=== PATIENT | female | born 1980 | race Caucasian/White ===

== ENCOUNTER 2016-12-04 21:55 | Emergency (ER) | payer OTHER ==
[2016-12-04] MEDS ORDERED: Ondansetron INJ* 2 MG/ML VIAL IV ONE (22:53)
[2016-12-04] MEDS ORDERED: NS 0.9% 1000 ML* 1,000 ML IV ONE (22:53)
[2016-12-04] MEDS ORDERED: Ofloxacin 0.3% OTIC.SOL* 5 ML BTL RIGHT EAR ONE (23:39)
--- NOTE | 2016-12-05 01:00 | ED ---
Throat Pain/Nasal Congestion - HPI Summary HPI Summary: 36F presents with right ear pain for 4 days. She has history of positional vertigo. She has had recent ear infection. She was taking aumgentin for a sinus /ear infection and last dose was 5 days ago. She admits to vertigo with the ear pain. She has ringing in her ears. She states she feels just miserable. She admits to sinus drainage. She has been taking sudafed as suggested by her primary. She states that is has been making the vertigo worst. - History of Current Complaint Chief Complaint: EDEarPain Time Seen by Provider: 12/04/16 22:15 - Allergies/Home Medications Allergies/Adverse Reactions: Allergies Allergy/AdvReac Type Severity Reaction Status Date / Time No Known Allergies Allergy Verified 08/06/15 07:09 PMH/Surg Hx/FS Hx/Imm Hx Endocrine/Hematology History: Denies: Hx Blood Disorders Cardiovascular History: Denies: Hx Valvular Heart Disease Respiratory History: Denies: Hx Asthma Musculoskeletal History: Denies: Hx Osteoporosis Sensory History: Reports: Hx Contacts or Glasses Opthamlomology History: Reports: Hx Contacts or Glasses Neurological History: Denies: Hx Seizures Psychiatric History: Denies: Hx Anxiety, Hx Eating Disorder, Hx Depression - Surgical History Surgery Procedure, Year, and Place: tonsils. double hernia repair as a child Infectious Disease History: No Infectious Disease History: Denies: Traveled Outside the [place] in Last 30 Days - Family History Known Family History: Positive: None, Hypertension - Social History Alcohol Use: Rare Hx Substance Use: No Substance Use Type: Reports: None Hx Tobacco Use: No Smoking Status (MU): Never Smoked Tobacco Review of Systems Negative: Fever Positive: Ear Ache, Nasal Discharge Negative: Chest Pain Negative: Shortness Of Breath, Cough Neurological: Other - vertigo Negative: Weakness All Other Systems Reviewed And Are Negative: Yes Physical Exam Triage Information Reviewed: Yes Vital Signs On Initial Exam: Initial Vitals Temp Pulse Resp BP Pulse Ox 98.3 F 96 20 145/82 99 12/04/16 21:57 12/04/16 21:57 12/04/16 21:57 12/04/16 21:57 12/04/16 21:57 Vital Signs Reviewed: Yes Appearance: Positive: Ill-Appearing Skin: Positive: Warm, Dry Head/Face: Positive: Normal Head/Face Inspection Eyes: Positive: Normal, EOMI, HEDY, Conjunctiva Clear ENT: Positive: Pharynx normal, Nasal drainage, TMs normal, Other - canal erythematous of right ear, fluid behind TMs Neck: Positive: Supple, Nontender, No Lymphadenopathy Respiratory/Lung Sounds: Positive: Clear to Auscultation, Breath Sounds Present Cardiovascular: Positive: Normal, RRR Neurological: Positive: Alert, Oriented to Person Place, Time, CN Intact II- III. Negative: Moris-[place] Test - [place] Coma Scale Best Eye Response: 4 - Spontaneous Best Motor Response: 6 - Obeys Commands Best Verbal Response: 5 - Oriented Coma Scale Total: 15 Diagnostics - Vital Signs Vital Signs Temp Pulse Resp BP Pulse Ox 12/04/16 22:19 98.3 F 92 20 142/82 98 12/04/16 21:57 98.3 F 96 20 145/82 99 - Laboratory Lab Statement: Any lab studies that have been ordered have been reviewed, and results considered in the medical decision making process. Re-Evaluation - Re-Evaluation First Eval Re-Evaluation Time: 01:01 Change: Improved EENT Course/Dx - Course Course Of Treatment: 36F presents with ear pain in right ear for 4 days. also admits to vertigo. has been taking sudafed which has not helped. admits to tinnitus. takes meczline and zofran normally for vertigo but not helping. on exam neg moris-hallmarks. TM fluid behind but nonbuldging. canal is erythematous so will treat for otits externa. gave liter of fluids and zofran and patient felt better. discussed that may need to follow up with ENT due to recurrent issues with vertigo and tinnitus. patient understands and agrees with plan - Differential Diagnoses Differential Diagnoses: Otitis Externa, Otitis Media, Sinusitis, Other - vertigo - Diagnoses Provider Diagnoses: Otitis externa, Vertigo Discharge - Discharge Plan Condition: Good Disposition: HOME Prescriptions: Fluticasone NASAL SPRAY 50MCG* [Flonase NASAL SPRAY 50MCG*] 2 spray BOTH NARES DAILY #1 btl Patient Education Materials: Otitis Externa (ED) Referrals: Bhaskar Teran MD [Medical Doctor] - Judi Nevarez MD [Primary Care Provider] - Additional Instructions: Take 10 drops in ear once daily for 7 days Take Flonase one spray each nostril twice a day Continue to take sudafed Follow up with ENT Return to ED if develop any new or worsening symptoms
[2016-12-05 01:11] VITALS: BP 136/76
== END 2016-12-05 01:10 | disposition home or self-care (01) ==
LOC: ED 21:55
DX: H60.90 Unspecified otitis externa, unspecified ear (principal); H92.01 Otalgia, right ear; R42 Dizziness and giddiness
CPT/HCPCS: 96374; 99282; A9270-GY; J2405

== ENCOUNTER 2016-12-20 16:52 | Emergency (ER) | payer OTHER ==
[2016-12-20] MEDS ORDERED: methylPREDNISolone 125 MG* 2 ML VIAL IV ONE (17:32)
[2016-12-20] MEDS ORDERED: Famotidine IV* 10 MG/ML 2 ML (20 mg) IV SLOW PU ONE (17:32)
[2016-12-20 19:08] VITALS: BP 116/68
--- NOTE | 2016-12-21 18:01 | ED ---
Spike Florez Auryana, scribed for Chuy Braun MD on 12/20/16 at 1801 . Allergic Reaction/Systemic - HPI Summary HPI Summary: 36 year old female BIBA s/p allergic reaction to ABX. Patient reports that she just started taking the medication today for fluids behind her ears x8 weeks. Patient reports that on the way to the doctors today she had a near syncopal episode with bilateral hand swelling and tingling. She also had erythema/rash on the upper ext./face, tongue swelling and trouble swallowing en route to ED. EPI ADMISSION NURSE - one at PCP and one en route. Dr. Nevarez is her PCP. - History of Current Complaint Chief Complaint: EDAllergicReaction Time Seen by Provider: 12/20/16 17:10 Hx Obtained From: Patient Onset/Duration: Sudden Onset, Started hours ago - ADMISSION NURSE, Still Present Timing: Intermittent Severity Initially: Moderate Severity Currently: Moderate Pain Intensity: 0 Pain Scale Used: 0-10 Numeric Location: Diffuse Character: Swelling, Hives Associated Signs And Symptoms: Positive: Rash, Other: - tongue swelling with trouble swallowing, near syncope, and tingling in the hands with edema - Related Hx Possible Reaction To: Medications - ABX - Allergies/Home Medications Allergies/Adverse Reactions: Allergies Allergy/AdvReac Type Severity Reaction Status Date / Time No Known Allergies Allergy Verified 08/06/15 07:09 PMH/Surg Hx/FS Hx/Imm Hx Endocrine/Hematology History: Denies: Hx Blood Disorders Cardiovascular History: Denies: Hx Valvular Heart Disease Respiratory History: Denies: Hx Asthma Musculoskeletal History: Denies: Hx Osteoporosis Sensory History: Reports: Hx Contacts or Glasses Opthamlomology History: Reports: Hx Contacts or Glasses Neurological History: Denies: Hx Seizures Psychiatric History: Denies: Hx Anxiety, Hx Eating Disorder, Hx Depression - Surgical History Surgery Procedure, Year, and Place: tonsils. double hernia repair as a child Infectious Disease History: Denies: Traveled Outside the [place] in Last 30 Days - Family History Known Family History: Positive: Hypertension - Social History Lives: With Family Alcohol Use: Rare Hx Substance Use: No Substance Use Type: Reports: None Hx Tobacco Use: No Smoking Status (MU): Never Smoked Tobacco Review of Systems Constitutional: Negative Negative: Fever Eyes: Negative Positive: Other - TONGUE SWELLING WITH TROUBLE SWALLOWING Cardiovascular: Negative Respiratory: Negative Gastrointestinal: Negative Genitourinary: Negative Positive: no symptoms reported Positive: Edema - HANDS Positive: Rash - UPPER EXT AND FACE Positive: Paresthesia - HANDS , Syncope - NEAR Psychological: Normal All Other Systems Reviewed And Are Negative: Yes Physical Exam Triage Information Reviewed: Yes Vital Signs On Initial Exam: Initial Vitals Temp Pulse Resp BP 98 F 88 18 129/70 12/20/16 17:01 12/20/16 17:01 12/20/16 17:01 12/20/16 17:01 Vital Signs Reviewed: Yes Appearance: Positive: Well-Appearing, No Pain Distress, Well-Nourished Skin: Positive: Warm, Skin Color Reflects Adequate Perfusion, Dry Head/Face: Positive: Normal Head/Face Inspection Eyes: Positive: Normal ENT: Positive: Hearing grossly normal, Pharynx normal, Other - MILD FLUID BEHIND THE EARS Dental: Positive: Other - SLIGHT TONGUE SWELLING Neck: Positive: Supple, Nontender Respiratory/Lung Sounds: Positive: Clear to Auscultation, Breath Sounds Present Cardiovascular: Positive: RRR, Pulses are Symmetrical in both Upper and Lower Extremities Abdomen Description: Positive: Nontender, Soft Bowel Sounds: Positive: Present Musculoskeletal: Positive: Normal, Strength/ROM Intact Neurological: Positive: Normal, Sensory/Motor Intact Psychiatric: Positive: Normal, Affect/Mood Appropriate Diagnostics - Vital Signs Vital Signs Temp Pulse Resp BP Pulse Ox 12/20/16 17:12 85 18 98 12/20/16 17:01 98 F 88 18 129/70 - Laboratory Lab Statement: Any lab studies that have been ordered have been reviewed, and results considered in the medical decision making process. Allergic Reaction Course/Dx - Course Course Of Treatment: Ms. Lopez came in after a severe allergic reaction just subsequent to taking cefuroxime which she has had many times in the past. She got better with prehospital meds and we continued tretment and observed her. - Diagnoses Provider Diagnoses: Allergic reaction Discharge - Discharge Plan Condition: Stable Disposition: HOME Patient Education Materials: Antibiotic Medication Allergy (ED) Referrals: Judi Nevarez MD [Primary Care Provider] - 3 Days Additional Instructions: STOP TAKING CEFEROXINE The documentation as recorded by the Spike phillip Auryana accurately reflects the service I personally performed and the decisions made by , Chuy Braun MD.
== END 2016-12-20 19:09 | disposition home or self-care (01) ==
LOC: ED 16:52
DX: T78.40XA Allergy, unspecified, initial encounter (principal)
CPT/HCPCS: 96374; 96375; 99283; J2930

== ENCOUNTER 2017-06-24 13:18 | Emergency (ER) | payer OTHER ==
[2017-06-24] MEDS ORDERED: Famotidine IV* 10 MG/ML 2 ML (20 mg) IV ONE (13:34)
--- NOTE | 2017-06-24 15:33 | ED ---
Ross Florez Abhishek, scribed for Nam Alonzo MD on 06/24/17 at 1530 . Allergic Reaction/Systemic - HPI Summary HPI Summary: This patient is a 36 year old F BIBA with a chief complaint of allergic reaction since 1130 on 06/24/17. The patient rates the pain 0/10 in severity. Symptoms aggravated by nothing. Symptoms alleviated by Epinephrine and Benadryl. Pt does not know the source of the allergies. Other allergy includes cefuroxime. Patient reports throat tightening and pruritus during onset of allergic reaction. Pt states her symptoms are currently relieved except the throat tightening. Pt denies SOB. EMS reports states that the pt was not under respiratory distress. - History of Current Complaint Chief Complaint: EDAllergicReaction Time Seen by Provider: 06/24/17 13:34 Hx Obtained From: Patient, EMS Onset/Duration: Sudden Onset, Resolved Timing: Constant Severity Currently: None Pain Intensity: 0 Pain Scale Used: 0-10 Numeric Character: Pruritus Alleviating Factor(s): Epinephrine, Other - benadryl Associated Signs And Symptoms: Positive: Throat Tightening - Related Hx Possible Reaction To: Unknown - Allergies/Home Medications Allergies/Adverse Reactions: Allergies Allergy/AdvReac Type Severity Reaction Status Date / Time Ciprofloxacin [From Cipro] Allergy Swelling Verified 06/24/17 14:26 PMH/Surg Hx/FS Hx/Imm Hx Endocrine/Hematology History: Denies: Hx Blood Disorders Cardiovascular History: Denies: Hx Valvular Heart Disease Respiratory History: Denies: Hx Asthma Musculoskeletal History: Denies: Hx Osteoporosis Sensory History: Reports: Hx Contacts or Glasses Opthamlomology History: Reports: Hx Contacts or Glasses Neurological History: Denies: Hx Seizures Psychiatric History: Denies: Hx Anxiety, Hx Eating Disorder, Hx Depression - Surgical History Surgery Procedure, Year, and Place: tonsils. double hernia repair as a child Infectious Disease History: No Infectious Disease History: Denies: Traveled Outside the [place] in Last 30 Days - Family History Known Family History: Positive: Hypertension, Diabetes, Other - prostate cancer - Social History Alcohol Use: Rare Hx Substance Use: No Substance Use Type: Reports: None Hx Tobacco Use: No Smoking Status (MU): Never Smoked Tobacco Review of Systems Constitutional: Negative Eyes: Negative ENT: Other - throat tightening Cardiovascular: Negative Positive: Other - negative respiratory distress. Negative: Shortness Of Breath Gastrointestinal: Negative Genitourinary: Negative Musculoskeletal: Negative Skin: Other - pruritis Neurological: Negative Psychological: Normal All Other Systems Reviewed And Are Negative: Yes Physical Exam - Summary Physical Exam Summary: General: well-appearing, no pain distress Skin: warm, color reflects adequate perfusion, dry Head: normal Eyes: EOMI, HEDY ENT: normal Neck: supple, nontender Respiratory: CTA, breath sounds present Cardiovascular: RRR Abdomen: soft, nontender Bowel: present Musculoskeletal: normal, strength/ROM intact Neurological: normal, sensory/motor intact, A&O x3 Psychological: affect/mood appropriate Triage Information Reviewed: Yes Vital Signs On Initial Exam: Initial Vitals Temp Pulse Resp BP Pulse Ox 98.6 F 78 16 118/58 100 06/24/17 13:19 06/24/17 13:19 06/24/17 13:19 06/24/17 13:19 06/24/17 13:19 Vital Signs Reviewed: Yes - [place] Coma Scale Coma Scale Total: 15 Diagnostics - Vital Signs Vital Signs Temp Pulse Resp BP Pulse Ox 06/24/17 13:19 98.6 F 78 16 118/58 100 - Laboratory Lab Statement: Any lab studies that have been ordered have been reviewed, and results considered in the medical decision making process. Allergic Reaction Course/Dx - Course Course Of Treatment: IMPROVED IN ED. F/U PMD; RETURN IF WORSE. NO CRITICAL CARE TIME. - Diagnoses Provider Diagnoses: Allergic reaction Discharge - Discharge Plan Condition: Stable Disposition: HOME Prescriptions: Epinephrine [Epipen 2-Vern] 0.3 mg IM ONCE PRN #1 inj PRN Reason: Allergy Symptoms Famotidine TAB* [Pepcid 20 MG TAB*] 20 mg PO BID PRN #8 tab PRN Reason: Allergy Symptoms predniSONE TAB* [Deltasone TAB*] 40 mg PO DAILY PRN #8 tab PRN Reason: Allergy Symptoms Patient Education Materials: General Allergic Reaction (ED) Referrals: Judi Nevarez MD [Primary Care Provider] - Additional Instructions: FOLLOW UP WITH YOUR DOCTOR. RETURN TO THE EMERGENCY DEPARTMENT FOR ANY WORSENING OF YOUR CONDITION; DIFFICULTY BREATHING OR SWALLOWING OR QUESTIONS OR CONCERNS. The documentation as recorded by the Ross phillip Abhishek accurately reflects the service I personally performed and the decisions made by , Nam Alonzo MD.
[2017-06-24 15:47] VITALS: BP 109/62
== END 2017-06-24 15:45 | disposition home or self-care (01) ==
LOC: ED 13:18
DX: T78.40XA Allergy, unspecified, initial encounter (principal); X58.XXXA Exposure to other specified factors, initial encounter; Y92.9 Unspecified place or not applicable
CPT/HCPCS: 96374; 99282

== ENCOUNTER 2017-06-25 08:41 | Observation (INO) | payer OTHER ==
[2017-06-25] MEDS ORDERED: EPINEPHRINE 1 MG/ML 1 ML VIAL ONE (09:10)
[2017-06-25] MEDS ORDERED: Famotidine IV* 10 MG/ML 2 ML (20 mg) ONE (09:12)
[2017-06-25] MEDS ORDERED: diPHENhydraMINE IV* 50 MG/ML 1 ml VIAL (BENADRYL) ONE (09:12)
[2017-06-25] MEDS ORDERED: methylPREDNISolone 125 MG* 2 ML VIAL ONE (09:12)
[2017-06-25] MEDS ORDERED: Albuterol 2.5 MG/3 ML NEB.SOL* (0.083%) INH ONE (10:44)
--- NOTE | 2017-06-25 11:35 | ED ---
Amadou Florez Angela, scribed for Dora Levi MD on 06/25/17 at 0901 . Allergic Reaction/Systemic - HPI Summary HPI Summary: This pt is a 36 y/o female presenting to [facility] c/o recurrent allergic reaction upon waking up today. Pt reports she was seen in the ED yesterday for an allergic reaction and her symptoms were alleviated yesterday after Pepcid while in the ED. Today her symptoms have returned. The reason for her allergic reaction is still unknown. She states she has total body hives which are pruritic. She additionally notes lips tingling, chest tightness, throat tightness, hoarse voice, painful chest. Pt denies respiratory distress. She reports she took 2 Benadryl at 02:00 AM, Levothyroxine 75 mcg at 07:30, Famotidine 20 mg at 07:30, and 2 Prednisone of 20 mg each at 07:30 today. She is allergic to Cefuroxime, had an anaphylactic reaction. Pt takes Levothyroxine every day. LMP: June 22, lasted only 1-2 days, which is described as clots. She denies chance of ( had vasectomy). Blood pressure in the ED: 109/79 - History of Current Complaint Chief Complaint: EDAllergicReaction Hx Obtained From: Patient, Medical Records - ED record 06/24/17 Hx Last Menstrual Period: 2016 Onset/Duration: Gradual Onset, Started days ago - 1, Still Present, Worse Since - this am upon waking Timing: Constant, Lasting Days - 1 Severity Initially: Severe Severity Currently: Severe Pain Intensity: 0 Location: Diffuse Character: Swelling - lips, Pruritus, Hives Aggravating Factor(s): Nothing Alleviating Factor(s): Nothing Associated Signs And Symptoms: Positive: Chest Pain, Hoarseness, Throat Tightening, Other: - POS: lips tingling, chest tightness, total body hives. Negative: Difficulty Breathing - Related Hx Possible Reaction To: Unknown - Allergies/Home Medications Allergies/Adverse Reactions: Allergies Allergy/AdvReac Type Severity Reaction Status Date / Time Cefuroxime Allergy Anaphylatic Verified 06/25/17 12:17 Shock Home Medications: Home Medications Levothyroxine TAB* [Synthroid 75 MCG TAB*] 75 mcg PO DAILY 06/25/17 [History Confirmed 06/25/17] PMH/Surg Hx/FS Hx/Imm Hx Previously Healthy: No Endocrine/Hematology History: Reports: Hx Thyroid Disease - Hypothyroidism Denies: Hx Blood Disorders Cardiovascular History: Denies: Hx Valvular Heart Disease Respiratory History: Denies: Hx Asthma Musculoskeletal History: Denies: Hx Osteoporosis Sensory History: Reports: Hx Contacts or Glasses Opthamlomology History: Reports: Hx Contacts or Glasses Neurological History: Denies: Hx Seizures Psychiatric History: Denies: Hx Anxiety, Hx Eating Disorder, Hx Depression - Surgical History Surgery Procedure, Year, and Place: tonsils. double hernia repair as a child Infectious Disease History: No Infectious Disease History: Denies: Traveled Outside the [place] in Last 30 Days - Family History Known Family History: Positive: Cardiac Disease - father, Hypertension, Diabetes , Other - prostate cancer, skin CA, hypothyroidism - Social History Alcohol Use: Rare Hx Substance Use: No Substance Use Type: Reports: None Hx Tobacco Use: No Smoking Status (MU): Never Smoked Tobacco Review of Systems Negative: Fever ENT: Other - throat tight, lips tingling, hoarse voice Positive: Chest Pain - chest tight Negative: Shortness Of Breath, Other - respiratory distress Skin: Other - hives, total body Neurological: Negative Psychological: Normal All Other Systems Reviewed And Are Negative: Yes Physical Exam - Summary Physical Exam Summary: Appearance: Ill-appearing, no pain distress, Well-nourished Skin: Warm, total body hives Head: Swollen lips, no creases visible in lips Eyes: Conjunctiva clear ENT: Hoarse voice. No uvula edema or post pharynx swelling Neck: Supple, no nodes Respiratory: diminished breath sounds, loose cough, no respiratory distress, no wheezes Cardio: RRR, No murmur, pulses normal, brisk capillary refill Abdomen: soft, nontender Musculoskeletal: Strength Intact/ ROM intact Neuro: Alert, muscle tone normal, facial symmetry, sensory/motor intact, no focal deficit Psychological: Normal Triage Information Reviewed: Yes Vital Signs On Initial Exam: Initial Vitals Temp Pulse Resp BP Pulse Ox 98.0 F 105 16 114/84 97 06/25/17 08:45 06/25/17 08:45 06/25/17 08:45 06/25/17 08:45 06/25/17 08:45 Vital Signs Reviewed: Yes Diagnostics - Vital Signs Vital Signs Temp Pulse Resp BP Pulse Ox 06/25/17 08:45 98.0 F 105 16 114/84 97 - Laboratory Result Diagrams: 06/25/17 11:55 06/25/17 11:55 Lab Statement: Any lab studies that have been ordered have been reviewed, and results considered in the medical decision making process. Re-Evaluation - Re-Evaluation First Eval Re-Evaluation Time: 10:42 Comment: Pt reports her lips are still swollen. She notes difficulty taking a deep breath and states her chest feels tight. On re-examination, pt's breath sounds are diminished. Heart rate is 120. Blood pressure is 134/63. Pt will be given an albuterol treatment and will plan for admission. Allergic Reaction Course/Dx - Course Course Of Treatment: Pt medications reviewed this visit. Allergies noted. In ED pt was given Epi 0.3mg IM, Benadryl 50mg IV, SoluMedrol 125mg IV, Famotidine 40mg IV per anaphylaxis kit upon presentation, with some improvement. Given albuterol neb x 1 when c/o persistent chest tightness. [11:35] I discussed pt care with Dr. Osuna, hospitalist, who has agreed to admit the pt for persisting systemic allergic reaction/anaphylaxis despite continued oral outpatient therapy. - Diagnoses Differential Diagnosis/HQI/PQRI: Positive: Anaphylaxis, Bronchospasm, Urticaria Provider Diagnoses: Anaphylactic reaction - Provider Notifications Discussed Care Of Patient With: Harsha Osuna Time Discussed With Above Provider: 11:35 Instructed by Provider To: Admit As Inpatient - I discussed pt care wtih Dr. Osuna, hospitalist, who will admit the pt. - Critical Care Time Critical Care Time: 30-74 min - 30 minutes Discharge - Discharge Plan Condition: Stable Disposition: ADMITTED TO [facility] The documentation as recorded by the Amadou phillip Angela accurately reflects the service I personally performed and the decisions made by me, Dora Levi MD.
[2017-06-25] MEDS ORDERED: Acetaminophen TAB* 325 MG PO PRN (12:08)
[2017-06-25 12:09] LABS: ABS Basophils 0 10^3/ul (0-0.2); ABS Eosinophils 0 10^3/ul (0-0.6); ABS Lymphocytes 0.4 10^3/ul (1.0-4.8); ABS Monocytes 0.1 10^3/ul (0-0.8); ABS Neutrophils 15.4 10^3/ul (1.5-7.7); ABS Nucleated RBC 0.01 10^3/ul; Eosinophil % 0 % (0-6); Hematocrit 41 % (35-47); Hemoglobin 13.9 g/dl (12.0-16.0); Lymphocyte % 2.8 % (25-47); Mean Corpuscular HGB Conc 34 g/dl (31-36); Mean Corpuscular Hemoglobin 32 pg (27-31); Mean Corpuscular Volume 93 fL (80-97); Mean Platelet Volume 9 um3 (7.4-10.4); Nucleated Red Blood Cells % 0; Platelet Count 298 10^3/ul (150-450); Red Blood Count 4.41 10^6/ul (4.0-5.4); Red Cell Distribution Width 13 % (10.5-15)
[2017-06-25 12:25] LABS: EGFR Non-African American 76.3 (>60)
[2017-06-25] MEDS: diPHENhydraMINE PO* 25 MG PO SCH ×2 (13:37→17:02)
--- NOTE | 2017-06-25 15:20 | HP ---
CC: Dr. Lopez * HISTORY AND PHYSICAL: DATE OF ADMISSION: 06/25/17 PRIMARY CARE PROVIDER: Dr. Lopez. ATTENDING PHYSICIAN: Tiburcio Osuna MD * (dictation provided by Polly Sidhu NP). CHIEF COMPLAINT: Throat tightness and hives. HISTORY OF PRESENT ILLNESS: Ms. Bullock is a 36-year-old female with a past medical history of hypothyroidism, who originally presented to our hospital emergency room on 06/24/17 with concern for hives and throat tightness. Ms. Bullock states that she had a sudden onset of these symptoms at 11:30 yesterday. She had no ingestion or any other exposure to an allergen that she suspected could be precipitating these symptoms. She was treated initially at her primary care's office with epinephrine and then transitioned to the emergency room. She responded well and was discharged to home with famotidine, Benadryl and prednisone treatment. The patient states she took her prednisone and famotidine last night and again this morning; however, shortly after getting up this morning, she again had worsening of hives, throat tightness, and chest tightness and therefore, returned to the emergency room for evaluation. She denies other complaints. She states that she has had ongoing chronic sinus infections for which she is following with Dr. Teran. She has only one other episode of an anaphylactic reaction and that was to CEFUROXIME back in November 2016. She had been taking that medication for sinus infection. In the emergency room, Ms. Bullock appeared distressed, but was able to swallow and was breathing easily. She was administered medications in the ED and now is resting comfortably, though she remains tachycardic. Labs are pending. PAST MEDICAL HISTORY: 1. Hypothyroidism. 2. Chronic sinus infection x2 years. MEDICATIONS: 1. Epinephrine p.r.n. 2. Famotidine 20 mg p.o. b.i.d. 3. Prednisone 40 mg p.o. daily. 4. Levothyroxine 75 mcg p.o. daily. ALLERGIES: To CIPROFLOXACIN and CEFUROXIME. FAMILY HISTORY: The patient reports her mother has thyroid problems. Her dad had prostate cancer, skin cancer, diabetes and hypertension. SOCIAL HISTORY: The patient has never been a smoker. No history of illicit drug use. She drinks alcohol only occasionally. She states her will be the healthcare proxy. She has 3 children. REVIEW OF SYSTEMS: A 14-point review of systems was completed with Ms. Bullock, and all those not mentioned above were negative. PHYSICAL EXAMINATION GENERAL: Ms. Bullock is lying in the bed. She is a bit tremulous, but in no acute distress. VITAL SIGNS: Temperature 98.0, heart rate 101, respiratory 20, O2 saturation 98 % on room air, blood pressure 108/57. LUNGS: Clear to auscultation bilaterally with no accessory muscle use and good aeration. HEART: S1, S2. No murmurs, rubs, or gallop, and regular. ABDOMEN: Soft, nontender with bowel sounds positive x4. EXTREMITIES: No cyanosis or edema. NEUROLOGIC: She is alert. She is oriented to x3. She moves all extremities equally. There is no facial asymmetry or focal weakness. Extraocular movements are intact. SKIN: The patient has mild light wheals distributed across her torso. The patient states that they have improved since arrival. DIAGNOSTIC STUDIES/LABORATORY DATA: Labs are pending. No imaging. ASSESSMENT: Ms. Bullock is a 36-year-old female with a past medical history of hypothyroidism and a previous anaphylactic reaction to CEFUROXIME, who presents today to the hospital with concern for anaphylactic reaction of unknown origin with hives and throat tightness and chest tightness. Our plans are for observation in the hospital for the followin. Recurrent allergic anaphylactic reaction. The patient likely is having a biphasic reaction to whatever her allergen was; however, as we do not know what the allergen that precipitated the event was, perhaps she was re-exposed to this on the return home. Regardless, she presented with worsening hives and distress with airway tightening and chest tightening. She is breathing easily now. Her vitals are stable other than tachycardia, which I suspect is related to the administration of steroids and nebulizers. Plan to continue treatment with famotidine, Benadryl and prednisone. We will be monitoring her closely overnight and adding additional agents as needed. 2. Hypothyroidism. Continue levothyroxine. 3. History of chronic sinus infections. The patient is encouraged to continue to follow with Dr. Teran. 4. Code status. Full code. TIME SPENT: Approximately 60 minutes was spent on the admission of this patient , more than half the time spent with the patient at the bedside reviewing the events leading up to this hospitalization, performing the physical examination, and reviewing my plan of care. POLLY SIDHU NP [id number]/[facility] #: [id number] BRAYAN
[2017-06-25] MEDS ORDERED: diPHENhydraMINE PO* 50 MG PO ONE (16:38)
[2017-06-25] MEDS: Famotidine TAB* 20 MG PO SCH (19:31)
[2017-06-25] MEDS ORDERED: predniSONE TAB* 20 MG PO SCH ×2 (21:00)
[2017-06-26] MEDS: diPHENhydraMINE PO* 25 MG PO SCH (01:00)
[2017-06-26] MEDS ORDERED: diPHENhydraMINE PO* 25 MG PO PRN (01:36)
[2017-06-26] MEDS ORDERED: diPHENhydraMINE IV* 50 MG in NS 0.9% 50 ML* 50 ML IVPB ONE (02:21)
[2017-06-26] MEDS ORDERED: diPHENhydraMINE IV* 50 MG/ML 1 ml VIAL (BENADRYL) IV ONE (03:00)
[2017-06-26] MEDS ORDERED: Levothyroxine TAB* 75 MCG TAB PO SCH (06:00)
[2017-06-26] MEDS: Famotidine TAB* 20 MG PO SCH (08:07)
[2017-06-26] MEDS ORDERED: Famotidine TAB* 20 MG PO SCH (09:00)
[2017-06-26] MEDS ORDERED: predniSONE TAB* 20 MG PO SCH (09:00)
[2017-06-26] MEDS ORDERED: Dexamethasone IV* 4 MG/ML 1 ML (4 MG) IV SLOW PU ONE (11:04)
[2017-06-26] MEDS ORDERED: Analgesic BALM* 114 GM TOPICAL PRN (11:13)
[2017-06-26] MEDS: diPHENhydraMINE IV* 50 MG/ML 1 ml VIAL (BENADRYL) IV PRN ×2 (11:19→17:57)
--- NOTE | 2017-06-26 13:23 | PN ---
Subjective Date of Service: 06/26/17 Interval History: Patient seen and examined. Still c/o pruritis and chest heaviness. No wheeze, no acute SOB, some tingling in lips and tongue. No swelling, no fatigue. Denies n/v, no headache or dizziness. No further complaints. Objective Active Medications: Acetaminophen (Tylenol Tab*) 650 mg PO Q6H PRN PRN Reason: PAIN Diphenhydramine HCl (Benadryl Iv*) 25 mg IV Q6H PRN PRN Reason: PRURITIS Last Admin: 06/26/17 11:19 Dose: 25 mg Famotidine (Pepcid Tab*) 20 mg PO BID [facility] Last Admin: 06/26/17 08:07 Dose: 20 mg Levothyroxine Sodium (Synthroid Tab*) 75 mcg PO DAILY@0600 [facility] Last Admin: 06/26/17 05:59 Dose: 75 mcg Multi-Ingredient Liniment/Rub (Paxton Nowak*) 1 applic TOPICAL Q6H PRN PRN Reason: RELIEF Last Admin: 06/26/17 11:59 Dose: 1 applic Vital Signs - 8 hr 06/26/17 06/26/17 06/26/17 08:06 08:13 10:04 Temperature 98.6 F Pulse Rate 62 Respiratory 16 17 16 Rate Blood Pressure 104/64 (mmHg) O2 Sat by Pulse 97 Oximetry 06/26/17 06/26/17 06/26/17 11:19 12:28 12:48 Temperature 97.4 F Pulse Rate 56 Respiratory 16 16 14 Rate Blood Pressure 119/66 (mmHg) O2 Sat by Pulse 96 Oximetry Oxygen Devices in Use Now: None Appearance: Alert, mild distress Eyes: No Scleral Icterus, PERRLA Ears/Nose/Mouth/Throat: NL Teeth, Lips, Gums, Clear Oropharnyx, Mucous Membranes Moist Neck: NL Appearance and Movements; NL JVP, Trachea Midline, No Thyroid Enlargement, Masses Respiratory: Symmetrical Chest Expansion and Respiratory Effort, Clear to Auscultation Cardiovascular: NL Sounds; No Murmurs; No JVD, RRR, No Edema Abdominal: NL Sounds; No Tenderness; No Distention, No Hepatosplenomegaly Lymphatic: No Cervical Adenopathy Extremities: No Edema, No Clubbing, Cyanosis Skin: - - Diffusse patchy erythematous rash, flat, not well circumscribed. Primarily on lower abdomen, antecubes, wrists, axillae, inner and anterior thighs. Thighs or more mac/pap in nature. Neurological: Alert and Oriented x 3, NL Sensation, NL Muscle Strength and Tone Result Diagrams: 06/25/17 11:55 06/25/17 11:55 Assess/Plan/Problems-Billing Assessment: - Patient Problems (1) Rash due to allergy Code(s): R21 - RASH AND OTHER NONSPECIFIC SKIN ERUPTION SNOMED Code(s): 54081337 Comment: - Recurrent, severe - Etiology unclear - Change back to IV benadryl - Trial one dose decaron IV now - Topical skin analgesic for comfort - Continue pepcid - Albuterol PRN, no epi indicated at this time (2) Hypothyroidism Code(s): E03.9 - HYPOTHYROIDISM, UNSPECIFIED SNOMED Code(s): 41661366 Comment: - Continue synthroid Status and Disposition: Remain inpatient and closely monitor respiratory status and continued response to treatment. Counseling and/or Coordination of Care Minutes: Coordinated with patient and staff.
[2017-06-26 19:55] VITALS: BP 124/67
--- NOTE | 2017-06-27 13:46 | DS ---
AMENDED REPORT NOW INCLUDES COSIGNER DESIGNATION - ESIGNED BEFORE ADJUSTMENTS CC: Dr. Lopez * DISCHARGE SUMMARY: DATE OF ADMISSION: 06/25/17 DATE OF DISCHARGE: 06/26/17 PRIMARY CARE PHYSICIAN: Judi Lopez MD. ATTENDING PHYSICIAN DURING ADMISSION: Harsha Osuna MD *(DICTATED BY LIZY ALARCON NP) HOSPITAL COURSE: This is a pleasant 36-year-old female patient who had two previous visits to her primary care physician and to the emergency department with report of full body rash and shortness of breath, allergic reaction to unknown allergen. Patient initially went to her primary care doctor on the with report of this full body rash with pruritic maculopapular rash, tingling in the mouth, and some difficulty breathing. She received 0.3 mg of epinephrine in her primary care doctor's office and was sent to the emergency department for evaluation. She received IV Benadryl, Pepcid, and an additional 0.3 mg of epinephrine, was stabilized and sent home. A couple of hours later, the patient began to have symptoms again and returned back to the emergency department for additional treatment. At that point, she was admitted overnight for additional IV Benadryl, did not receive any additional epinephrine at that time; however, did receive Solu-Medrol 125 mg and then was placed on prednisone 40 mg and also Pepcid 2 times a day IV as well as albuterol treatments as needed. Patient was held overnight. She did not have any further respiratory compromise. She did have some tachycardia likely secondary to the epinephrine administration. However, she did not have a full blown anaphylaxis type reaction and her blood pressure remained stable. She remained hemodynamically stable. Her largest complaint was this tickling sensation in her mouth and lips. She did not have any swelling of the oral mucosa or the tongue and primarily itching in the axilla in the antecubital fossa bilaterally, in the groin area, medial area of the thighs, medial anterior thighs, and across her trunk. Overnight, when she was on Benadryl by mouth was not receiving good relief of her itching and her symptoms, was given an additional IV Benadryl dose with good effect. However, this morning began having additional symptoms, so this was changed to one dose of Decadron 6 mg, 25 mg of IV Benadryl, and became much more comfortable. Patient decided earlier this evening that she was feeling much better. Her symptoms seemed to diminish. She also received some topical analgesic cream along with the Decadron and Benadryl and continued with Pepcid and stated that she was feeling much better, showed no respiratory symptoms and desired to go home. Patient was discharged to home in stable condition. Instructed to follow up with her primary care provider, Dr. Judi Lopez, in the next 1 to 3 days. Prescriptions at the time of discharge were Benadryl 25 mg 1 tablet q. 6 hours as needed for itching x7 days, famotidine tablets 20 mg 2 times a day for 7 days, prednisone 50 mg daily x7 days, levothyroxine at her normal dose 75 mcg daily. Patient was discharged in stable condition in the care of her . All questions were answered. Patient verbalized understanding of her followup and medications at the time of discharge. She was instructed to follow up with the ER if she began to have additional shortness of breath or any respiratory like symptoms or any uncontrolled rash like symptoms that were not controlled with medications that which she was prescribed at the time of discharge. LIZY ALARCON NP [id number]/[facility] #: [id number] BRAYAN
== END 2017-06-26 19:53 | disposition home or self-care (01) ==
LOC: ED 08:41 → MED 12:45 → INTOOBSV 12:45
PROVIDERS: ADMIT Internal Medicine; ATTEND Internal Medicine
DX: T78.2XXA Anaphylactic shock, unspecified, initial encounter (principal); R07.9 Chest pain, unspecified; L50.9 Urticaria, unspecified
CPT/HCPCS: 36415; 80048; 85025; 99283; A9270-GY; G0378; J1100; J1200; J2930; J7512

== ENCOUNTER 2017-11-26 06:28 | Day surgery (SDC) | payer OTHER ==
[~2017-11-26 06:28] MED LIST: Buffered Lidocaine 0.9% SYRIN* 5 ML/SYR SYRINGE INTRADERM ONE
[2017-11-26] MEDS ORDERED: fentaNYL* 50 MCG/ML 2 ML VIAL (100 MCG VIAL) ONE ×2 (08:09→10:13)
[2017-11-26] MEDS ORDERED: Midazolam* 1 MG/ML 2 ML VIAL (2 MG) ONE (08:09)
[2017-11-26] MEDS ORDERED: Oxymetazoline 0.05% NASAL SPR* 15 ML BTL ONE (08:46)
[2017-11-26] MEDS ORDERED: Gelfoam 12-7 ADSORBABL SPONGE* 1 EA SPONGE ONE (08:46)
[2017-11-26] MEDS ORDERED: Triamcinolone Acetonide* 40 MG/ML 1 ML VIAL ONE (08:46)
[2017-11-26] MEDS ORDERED: Lidocaine 2% EPI 1:200000 MPF*10-20 ML VIAL ONE ×2 (08:46→09:22)
[2017-11-26] MEDS ORDERED: Gelatin ADSORBABLE (OPHTH)* OPHTH.FILM ONE (08:47)
[2017-11-26] MEDS ORDERED: Lidocaine 2% PF * 5 ML VIAL ONE (08:52)
[2017-11-26] MEDS ORDERED: Propofol* 10 MG/ML 20 ML BTL IV PUSH ONE (08:53)
[2017-11-26] MEDS ORDERED: Dexamethasone IV* 4 MG/ML 1 ML (4 MG) ONE (08:53)
[2017-11-26] MEDS ORDERED: Famotidine IV* 10 MG/ML 2 ML (20 mg) ONE (08:53)
[2017-11-26] MEDS ORDERED: diPHENhydraMINE IV* 50 MG/ML 1 ml VIAL (BENADRYL) IV PRN (09:22)
[2017-11-26] MEDS ORDERED: Ondansetron ODT TAB* 4 MG PO PRN (09:22)
[2017-11-26] MEDS ORDERED: Levalbuterol 0.63MG/3ML NEB* UNIT OF USE INH PRN (09:22)
[2017-11-26] MEDS ORDERED: Acetaminophen TAB* 325 MG PO PRN (09:22)
[2017-11-26] MEDS ORDERED: PROCHLORPERAZINE INJ 5 MG/ML 2 ML VIAL IV PRN (09:22)
[2017-11-26] MEDS ORDERED: fentaNYL* 50 MCG/ML 2 ML VIAL (100 MCG VIAL) IV PRN (09:22)
[2017-11-26] MEDS ORDERED: Naloxone* 0.4 MG/ML 1 ML VIAL IV PRN (09:22)
[2017-11-26] MEDS ORDERED: DiMENhydriNATE IV* 50 MG/ML VIAL IV PUSH PRN (09:22)
[2017-11-26] MEDS ORDERED: Ondansetron INJ* 2 MG/ML VIAL IV PRN (09:22)
[2017-11-26] MEDS ORDERED: HYDROcodone/ACETAMIN 5-325 MG* 1 TAB PO PRN (09:22)
[2017-11-26] MEDS ORDERED: HYDROcodone/ACETAMIN 5-325 MG* 1 TAB ONE (10:13)
[2017-11-26] MEDS ORDERED: Ondansetron ODT TAB* 4 MG ONE (10:51)
[2017-11-26 11:46] VITALS: BP 134/89
--- NOTE | 2017-11-27 07:36 | OP ---
DATE OF OPERATION: 11/26/17 - SDS DATE OF : 78. SURGEON: Bhaskar Teran MD. PRE-OP DIAGNOSES: Chronic sinusitis and hypertrophied turbinates with nasal dyspnea. POST-OP DIAGNOSES: Chronic sinusitis and hypertrophied turbinates with nasal dyspnea. OPERATIVE PROCEDURE: Bilateral video endoscopic maxillary antrostomy and bilateral submucosal resection of the inferior turbinate. BRIEF HISTORY: This is 37-year-old female with longstanding history of chronic symptoms of sinusitis with facial pressure, pain, congestion, postnasal drainage , rhinorrhea, has had immunotherapy, nasal steroids, oral steroids, oral antibiotics without complete resolution of the symptoms. She also had consistent and persistent nasal congestion and in spite of nasal therapy was having congestion. DESCRIPTION OF PROCEDURE: The patient was taken to the operating room, patient was intubated with LMA. Nose was decongested with Afrin-placed pledgets. Subsequently, 0-degree telescope, 30-degree telescope and endoscopic sinus surgery instruments were utilized. 2% lidocaine with epinephrine infiltrated in the uncinate region on both sides. Uncinectomy was carried out. Antrostomy was enlarged on the left side. The space between the middle turbinate was lateralized and wall impacted with Gelfoam and Gelfilm. Small amount of Kenalog was infiltrated into this area. We turned to the right side up, again the uncinate process was removed. Antrostomy was enlarged. Copious irrigation of the antrum was carried out and some thick mucoid material was suctioned out. Once this was done, a spacer was used between the middle turbinate and the lateral nasal wall with Gelfoam and Gelfilm. We then turned our attention to the inferior turbinate. Outfracture of the inferior turbinate was carried out. Submucosal resection was carried out using a small incision and removing some of the inf turbinate bone and cauterizing the area for hemostasis. Once adequate hemostasis was obtained, the patient was awakened and sent to the recovery room in stable condition. Instrument and sponge counts were correct. Blood loss was minimal. [id number]/[facility] #: [id number] [facility] [place]
== END 2017-11-26 11:58 | disposition home or self-care (01) ==
LOC: OR 06:28
PROVIDERS: ATTEND Otolaryngology
DX: J32.9 Chronic sinusitis, unspecified (principal); J34.3 Hypertrophy of nasal turbinates; J31.0 Chronic rhinitis; E03.9 Hypothyroidism, unspecified; K21.9 Gastro-esophageal reflux disease without esophagitis; F41.9 Anxiety disorder, unspecified; J45.909 Unspecified asthma, uncomplicated
CPT/HCPCS: 81025; A9270-GY; J1100; J2250; J2704; J3010; J3301

== ENCOUNTER 2017-12-24 19:54 | Observation (INO) | payer OTHER ==
[2017-12-24] MEDS ORDERED: Oxymetazoline 0.05% NASAL SPR* 15 ML BTL ONE ×2 (20:30→22:20)
[2017-12-24] MEDS ORDERED: NS 0.9% 1000 ML* 1,000 ML IV ONE (20:54)
[2017-12-24 21:06] LABS: ABS Basophils 0.1 10^3/ul (0-0.2); ABS Eosinophils 0.2 10^3/ul (0-0.6); ABS Lymphocytes 2.3 10^3/ul (1.0-4.8); ABS Monocytes 0.6 10^3/ul (0-0.8); ABS Nucleated RBC 0 10^3/ul; Eosinophil % 3.9 % (0-6); Hematocrit 36 % (35-47); Hemoglobin 12.4 g/dl (12.0-16.0); Mean Corpuscular HGB Conc 34 g/dl (31-36); Mean Corpuscular Hemoglobin 31 pg (27-31); Mean Corpuscular Volume 91 fL (80-97); Mean Platelet Volume 9.4 um3 (7.4-10.4); Nucleated Red Blood Cells % 0; Platelet Count 301 10^3/ul (150-450); Red Blood Count 3.99 10^6/ul (4.00-5.40); Red Cell Distribution Width 13 % (10.5-15); White Blood Count 6.2 10^3/ul (3.5-10.8)
[2017-12-24] MEDS: Tranexamic Acid 1,000 MG/10 ML 1,000 MG in NS 0.9% 100 ML* 100 ML IV ONE ×2 (21:10→21:23)
[2017-12-24 21:16] LABS: INR 1.09 (0.77-1.02)
[2017-12-24 21:23] LABS: EGFR Non-African American 58.7 (>60)
[2017-12-24] MEDS ORDERED: Morphine VIAL* 4 MG/ML VIAL (1 ml vial) IV PRN (21:59)
[2017-12-24] MEDS ORDERED: Magnesium Hydroxide LIQ* 30 ML UDC PO PRN (21:59)
[2017-12-24] MEDS ORDERED: Albuterol 2.5 MG/3 ML NEB.SOL* (0.083%) INH PRN (21:59)
[2017-12-24] MEDS ORDERED: Al Hydrox/Mg Hydrox/Simet LIQ* 30 ML UDC PO PRN (21:59)
[2017-12-24] MEDS ORDERED: oxyCODONE/Acetamin 5/325 MG* TAB PO PRN (21:59)
[2017-12-24] MEDS ORDERED: diPHENhydraMINE PO* 25 MG PO PRN (22:05)
[2017-12-24] MEDS ORDERED: Lidocaine 4% TOPICAL* 50 ML TOP.SOLN ONE (22:20)
[2017-12-24] MEDS ORDERED: Lidocain 1% EPI 1:100,000 * 30 ML MDV ONE (22:20)
[2017-12-24] MEDS ORDERED: fentaNYL* 50 MCG/ML 2 ML VIAL (100 MCG VIAL) ONE (23:08)
[2017-12-24] MEDS ORDERED: Midazolam* 1 MG/ML 2 ML VIAL (2 MG) ONE (23:08)
[2017-12-24] MEDS ORDERED: Dexamethasone IV* 4 MG/ML 1 ML (4 MG) ONE (23:18)
[2017-12-24] MEDS ORDERED: Propofol* 10 MG/ML 20 ML BTL IV PUSH ONE (23:18)
[2017-12-24] MEDS ORDERED: Succinylcholine* 20 MG/ML 10 ML VIAL ONE (23:18)
[2017-12-24] MEDS ORDERED: Lidocaine 2% PF * 5 ML VIAL ONE (23:19)
[2017-12-24] MEDS ORDERED: Naloxone* 0.4 MG/ML 1 ML VIAL IV PRN (23:48)
--- NOTE | 2017-12-24 23:56 | HP ---
CC: Dr. Lopez; Dr. Chago Butcher * ADMISSION HISTORY AND PHYSICAL: DATE OF ADMISSION: 12/24/17 PATIENT OF: Dr. Clayton Lopez, attending hospitalist.* (DICTATED BY YAIR NELSON) PRIMARY CARE PHYSICIAN: Dr. Lopez. CHIEF COMPLAINT: Epistaxis. HISTORY OF PRESENT ILLNESS: Ms. Bullock is a pleasant 37-year-old female, who carries past medical history significant for hypothyroidism and chronic sinus infection, who recently had a sinus surgery by Dr. Radford approximately 3 weeks ago, who presented to the emergency room earlier today with complaints of worsening nosebleed since earlier this afternoon. The patient apparently had sinus surgery done 3 weeks ago that went essentially unremarkable. She recovered well and she noticed minor nasal bleed on and off, however, never been an issue since her discharge from the hospital. Earlier today, she bent over to grab some laundry when she noticed some blood dripping from one side of her nose. She applied pressure and tilted her head back and was not able to control the bleeding. She presented to the emergency room and nasal packing as well as pressure application was unable to control her epistaxis. According to ED providers, the patient lost approximately 500 cc during this epistaxis episode. She had laboratory workup that revealed stable hemoglobin and hematocrit; however, after multiple attempts to control her epistaxis, the ED staff eventually contacted Dr. Butcher from the ear, nose, and throat services at [facility], who presented to the emergency room to evaluate the patient. The patient denies any history of similar bleed in the past. 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 She had been struggling with recurrent sinus infection until she had her surgery 3 weeks ago. After ENT evaluation, the decision was made for the patient to likely be taken to the operating room to control epistaxis via endoscopy and we were asked to see the patient for medical admit and observation overnight in the postoperative period. PAST MEDICAL HISTORY: Significant for: 1. Hypothyroidism. 2. Chronic sinus infections. 3. Recent diagnosis of common variable immune deficiency. MEDICATIONS: Her current medications include: 1. Benadryl 25 mg p.o. q.6 hours as needed for itching. 2. Pepcid 20 mg p.o. daily. 3. Gamunex-C 5 g IV q.4 weeks' infusion. 4. Synthroid 75 mcg p.o. daily. 5. Lortab 1 to 2 tablets q.4 hours as needed for pain. ALLERGIES: She is allergic to DOXYCYCLINE that causes rash and some reaction and allergic to CEFUROXIME, which causes anaphylactic shock. FAMILY HISTORY: Her mother with thyroid problems and her dad with prostate cancer, skin cancer, diabetes, and hypertension. SOCIAL HISTORY: The patient has never been a smoker. She drinks alcohol occasionally. She denies illicit drug use. She is , with 3 kids and her is the healthcare proxy. REVIEW OF SYSTEMS: See HPI. Otherwise, 14-point review of systems was completed and was otherwise negative. PHYSICAL EXAMINATION GENERAL: She is a pleasant, healthy-appearing 37-year-old female, appears comfortable, slightly anxious, but in no acute distress or discomfort at the time of admission. VITAL SIGNS: Revealed blood pressure of 147/68, pulse of 105, respirations of 16, and O2 sat of 99% on room air, her temperature was 98.1. HEENT: Head is normocephalic, atraumatic. Sclerae anicteric. PERRLA, EOMs intact. Left nostril with nasal packing and insulated catheter noted. There is occasional leakage of light pinkish coloration. Examination of the posterior pharynx revealed no evidence of blood on the posterior pharyngeal wall. NECK: Supple. Trachea midline. No cervical adenopathy or thyromegaly. LUNGS: Clear to auscultation bilaterally. HEART: Regular rate and rhythm. Normal S1 and S2 without rubs, murmurs, or gallops. BACK: With normal curvature. No CVA tenderness. BREASTS: Deferred at this time. ABDOMEN: Soft, nontender, nondistended. No hernias, masses, or hepatosplenomegaly. EXTREMITIES: Without cyanosis, clubbing, or edema. RECTAL: Deferred at this time. NEUROLOGIC: Grossly intact. LABORATORY DATA: White count of 6000, hemoglobin 12.4, hematocrit 36, and platelets of 301. Coagulation: INR of 1.09. The patient denies any history of bleeding disorder or any bleeding tendency. Chemistry panel with sodium of 138, potassium 3.9, chloride 102, CO2 29, BUN 18, creatinine of 0.05, glucose of 113, calcium of 9. Beta hCG is 4.2. IMPRESSION: A 37-year-old female with past medical history significant for chronic sinus infections as well as hypothyroidism, who had recently done a sinus surgery about 3 weeks ago, who presented to the emergency room with worsening episode of epistaxis that unfortunately failed any conservative measure to control and now had ENT evaluation and decision was made for her to be taken to the operating room for endoscopic control of her epistaxis. ASSESSMENT AND PLAN: 1. Epistaxis. It appears to be relatively controlled in the emergency room at this time. The patient was evaluated by Dr. Chago Butcher and will be taken to the operating room later this evening. The rationale, indication, risks, and benefits of surgery were discussed with her by the ENT provider and the patient agrees to proceed. I discussed with her the medical management part including postoperative care and observation overnight for pain management as well as to reassess any possible postoperative bleeding. We will obtain repeat CBC in the morning to assess her hemodynamic status. She has no evidence of tachycardia or hypotension to suggest significant blood loss but will keep her monitored. 2. Hypothyroidism. We will continue her on levothyroxine. 3. Common variable immune deficiency. The patient has been evaluated and getting an infusion treatment every month, most recently about a week ago. She appears to be stable from that standpoint. 4. DVT prophylaxis. She is a low risk and will utilize SCDs. 5. Code status. She is a full code and her is a healthcare proxy carrier. 6. Disposition. Admit for observation and the patient will be taken to the operating room for endoscopic control of epistaxis and likely be observed tonight and hopefully home in the morning. TIME SPENT: Approximately 45 minutes was spent admitting this patient including 50% taking history and performing physical exam. We will follow her up accordingly. YAIR NELSON [id number]/[facility] #: [id number] BRAYAN
[2017-12-25 05:53] LABS: ABS Basophils 0 10^3/ul (0-0.2); ABS Eosinophils 0 10^3/ul (0-0.6); ABS Lymphocytes 0.5 10^3/ul (1.0-4.8); ABS Monocytes 0.1 10^3/ul (0-0.8); ABS Neutrophils 9.5 10^3/ul (1.5-7.7); ABS Nucleated RBC 0 10^3/ul; Eosinophil % 0 % (0-6); Hematocrit 34 % (35-47); Hemoglobin 11.6 g/dl (12.0-16.0); Lymphocyte % 4.7 % (25-47); Mean Corpuscular HGB Conc 34 g/dl (31-36); Mean Corpuscular Hemoglobin 31 pg (27-31); Mean Corpuscular Volume 91 fL (80-97); Mean Platelet Volume 9.7 um3 (7.4-10.4); Nucleated Red Blood Cells % 0; Platelet Count 282 10^3/ul (150-450); Red Blood Count 3.74 10^6/ul (4.00-5.40); Red Cell Distribution Width 13 % (10.5-15); White Blood Count 10.1 10^3/ul (3.5-10.8)
[2017-12-25] MEDS ORDERED: Levothyroxine TAB* 75 MCG TAB PO SCH (06:00)
--- NOTE | 2017-12-25 06:58 | ED ---
Mann Florez Jade, scribed for Jason Maxwell MD on 12/24/17 at 2042 . Throat Pain/Nasal Congestion - HPI Summary HPI Summary: Pt is a 37 y/o female who presents to the ED c/o epistaxis since 19:00. She states she started bleeding from the left nare, but now is bleeding from both. Pt also complains of left ear pain, and N/V from swallowing the blood. She recently had surgery 4 weeks ago for a two and a half year long sinus infection due to common variable immunodeficiency disorder. Pt had her first Gamunex injection a week and a half ago. She states it feels like she has a clot in the back of her throat. She is a non-smoker and denies any blood thinners. - History of Current Complaint Chief Complaint: EDEpistaxis Time Seen by Provider: 12/24/17 20:22 Hx Obtained From: Patient Onset/Duration: Sudden Onset, Lasting Hours - 19:00, Still Present Associated Signs And Symptoms: Positive: Nasal Discharge - Blood Cough: None Related History: Prior ENT Surgery - 4 weeks ago for chronic sinus infection - Allergies/Home Medications Allergies/Adverse Reactions: Allergies Allergy/AdvReac Type Severity Reaction Status Date / Time doxycycline Allergy Severe Difficulty Verified 12/24/17 20:00 Breathing cefuroxime Allergy Anaphylatic Verified 12/24/17 20:00 Shock PMH/Surg Hx/FS Hx/Imm Hx Endocrine/Hematology History: Reports: Hx Thyroid Disease - HYPOTHYROID, Autoimmune Disease - Common Variable Immunodeficiency Denies: Hx Blood Disorders, Hx Bone Marrow Disease, Hx Sickle Cell Disease, Hx Anemia Cardiovascular History: Denies: Hx Valvular Heart Disease Respiratory History: Reports: Hx Asthma - EXERCISE INDUCED, HAS INHALER, NEVER USES IT, Other Respiratory Problems/Disorders - CHRONIC RHINITIS, SINUSITIS FOR PAST 2 YRS GI History: Reports: Hx Gastroesophageal Reflux Disease, Other GI Disorders - HERNIA REPAIR AT 1 YRS OF AGE Denies: Hx Hiatal Hernia Musculoskeletal History: Denies: Hx Osteoporosis Sensory History: Reports: Hx Contacts or Glasses - BOTH, WILL WEAR GLASSES DOS Denies: Hx Cataracts, Hx Glaucoma, Hx Hearing Aid Opthamlomology History: Reports: Hx Contacts or Glasses - BOTH, WILL WEAR GLASSES DOS Denies: Hx Cataracts, Hx Glaucoma Neurological History: Reports: Hx Migraine Denies: Hx Seizures, Other Neuro Impairments/Disorders Psychiatric History: Reports: Hx Anxiety - ABLE TO CONTROL, NOT TAKING RX AT THIS TIME, Hx Depression - CURRENTLY MANAGEABLE Denies: Hx Eating Disorder - Surgical History Surgery Procedure, Year, and Place: HERNIA REPAIR [facility]. TONSILLECTOMY [facility] Hx Anesthesia Reactions: No - Immunization History Date of Tetanus Vaccine: UTD Date of Influenza Vaccine: 02/2017 Infectious Disease History: No Infectious Disease History: Denies: Traveled Outside the [place] in Last 30 Days - Family History Known Family History: Positive: Cardiac Disease - father, Hypertension, Diabetes , Other - prostate cancer, skin CA, hypothyroidism - Social History Alcohol Use: Rare Hx Substance Use: No Substance Use Type: Reports: None Hx Tobacco Use: No Smoking Status (MU): Never Smoked Tobacco Have You Smoked in the Last Year: No Review of Systems Positive: Epistaxis Positive: Vomiting, Nausea All Other Systems Reviewed And Are Negative: Yes Physical Exam - Summary Physical Exam Summary: Appearance: Well appearing, no pain distress Skin: warm, dry, reflects adequate perfusion Head/face: normal Eyes: EOMI, HEDY ENT: Hemotympanum behind left ear. Neck: supple, non-tender Respiratory: CTA, breath sounds present Cardiovascular: pulses symmetrical, tachycardic but regular rhythm. Abdomen: non-tender, soft Bowel Sounds: present Musculoskeletal: normal, strength/ROM intact Neuro: normal, sensory motor intact, A&Ox3 Triage Information Reviewed: Yes Vital Signs On Initial Exam: Initial Vitals Temp Pulse Resp BP Pulse Ox 98.1 F 148 20 102/83 97 12/24/17 19:58 12/24/17 19:58 12/24/17 19:58 12/24/17 19:58 12/24/17 19:58 Vital Signs Reviewed: Yes Procedures - Procedure Summary Procedure Summary: Epistaxis Procedure: held pressure, packed with Afrin-soaked cotton balls, pt blew out clots. Put 8 cm Merocel, which didnt slow the bleeding, so was discontinued. Placed anterior-posterior RhinoRocket. Approximately 500 cc of blood came out while in ED prior to procedure. Pt states she is not feeling blood down throat now. Diagnostics - Vital Signs Vital Signs Temp Pulse Resp BP Pulse Ox 12/24/17 19:58 98.1 F 148 20 102/83 97 - Laboratory Lab Results: Lab Results 12/24/17 12/24/1718 Range/Units 20:58 20:58 20:58 WBC 6.2 (3.5-10.8) 10^3/ul RBC 3.99 L (4.00-5.40) 10^6/ul Hgb 12.4 (12.0-16.0) g/dl Hct 36 (35-47) % MCV 91 (80-97) fL MCH 31 (27-31) pg MCHC 34 (31-36) g/dl RDW 13 (10.5-15) % Plt Count 301 (150-450) 10^3/ul MPV 9.4 (7.4-10.4) um3 Neut % (Auto) 48.6 (38-83) % Lymph % (Auto) 37.0 (25-47) % Gem % (Auto) 9.1 H (0-7) % Eos % (Auto) 3.9 (0-6) % Baso % (Auto) 1.4 (0-2) % Absolute Neuts (auto) 3.0 (1.5-7.7) 10^3/ul Absolute Lymphs (auto) 2.3 (1.0-4.8) 10^3/ul Absolute Monos (auto) 0.6 (0-0.8) 10^3/ul Absolute Eos (auto) 0.2 (0-0.6) 10^3/ul Absolute Basos (auto) 0.1 (0-0.2) 10^3/ul Absolute Nucleated RBC 0 10^3/ul Nucleated RBC % 0 INR (Anticoag Therapy) 1.09 H (0.77-1.02) APTT 26.8 (26.0-36.3) seconds Sodium 138 (135-145) mmol/L Potassium 3.9 (3.5-5.0) mmol/L Chloride 102 (101-111) mmol/L Carbon Dioxide 29 (22-32) mmol/L Anion Gap 7 (2-11) mmol/L BUN 18 (6-24) mg/dL Creatinine 1.05 H (0.51-0.95) mg/dL Est GFR ( Amer) 71.0 (>60) Est GFR (Non-Af Amer) 58.7 (>60) BUN/Creatinine Ratio 17.1 (8-20) Glucose 113 H (70-100) mg/dL Calcium 9.0 (8.6-10.3) mg/dL Beta HCG, Quant 4.29 mIU/mL Result Diagrams: 12/25/17 05:16 12/24/17 20:58 Lab Statement: Any lab studies that have been ordered have been reviewed, and results considered in the medical decision making process. - EKG 21:01 Cardiac Rate: NL - 83 bpm EKG Rhythm: Sinus Rhythm ST Segment: Normal EKG Interpretation: Normal interval Re-Evaluation - Re-Evaluation First Eval Re-Evaluation Time: 20:54 Change: Unchanged Comment: Pt is syncopal. Second Eval Re-Evaluation Time: 21:11 Change: Improved Comment: Pt is alert and no longer bleeding. EENT Course/Dx - Course Course Of Treatment: 29-year-old female with extensive epistaxis after sinus and turbinate surgery by ENT. She is literally pouring out blood on arrival. In the short time she was in the ER she filled a bag with almost 500 cc of blood and clot. Able to slow this with Afrin and a Murocel packing. The Merisel held for a short time then had to be replaced with a Rhino Rocket. This helped significantly but the patient had a syncopal episode shortly thereafter. She did have some increase in bleeding afterwards and prior to the ENT surgeons arrival. As such, 1 g of IV TX A was given which stopped the bleeding. ENT surgeon arrived, evaluated and took the patient to the OR. - Differential Diagnoses Differential Diagnoses: Other - Anterior versus posterior versus sinus bleeding - Diagnoses Provider Diagnoses: Epistaxis, Syncope, Common variable immunodeficiency - Provider Notifications Discussed Care Of Patient With: Chago Butcher Time Discussed With Above Provider: 21:15 Instructed by Provider To: Will See In ED - Dr. Butcher will see the pt in the ED. - Critical Care Time Critical Care Time: 30-74 min - Article care time is exclusive of separately billable procedures. Discharge - Sign-Out/Discharge Documenting (check all that apply): Discharge/Admit/Transfer - Admit - Discharge Plan Condition: Fair Disposition: ADMITTED TO [facility] - Billing Disposition and Condition Condition: FAIR Disposition: Admitted to [facility] The documentation as recorded by the Mann phillip Jade accurately reflects the service I personally performed and the decisions made by me, Jason Maxwell MD.
[2017-12-25] MEDS: Acetaminophen TAB* 325 MG PO PRN ×2 (07:33→11:25)
[2017-12-25 07:40] VITALS: BP 109/64
[2017-12-25] MEDS ORDERED: Famotidine TAB* 20 MG PO SCH (09:00)
--- NOTE | 2017-12-25 12:47 | OP ---
DATE OF OPERATION: 12/24/17 - ROOM #352 DATE OF : 78 ATTENDING SURGEON: Chago Butcher MD. HYDRODYNAMICIST: None. ANESTHESIA: General. PRE-OP DIAGNOSIS: Epistaxis on the left. POST-OP DIAGNOSIS: Epistaxis on the left. OPERATIVE PROCEDURE: Endoscopic control of epistaxis. INDICATIONS FOR PROCEDURE: This is a 37-year-old woman who came into the ED with brisk left-sided epistaxis earlier this evening, proceeded to lose approximately 500 cc of blood while in the ED. She was ultimately controlled with a balloon pack, but then began to have bleeding through that pack. TXA was given with better control of epistaxis, but not complete. The decision was made to bring the patient to the operating room for endoscopic control of the epistaxis. FINDINGS: Brisk arterial bleeding source at the head of the left inferior turbinate. ESTIMATED BLOOD LOSS: Less than 30 cc. DESCRIPTION OF PROCEDURE: The patient was brought to the operating room, general anesthesia was induced using a rapid sequence induction protocol and the patient was orally intubated. The patient was then draped and a time-out was performed. The patient's existing balloon pack was deflated and removed. A 0-degree rigid endoscope was then used to explore the left nasal cavity. There was evidence of recent prior sinus surgery and turbinate surgery. There was brisk bleeding from the anterior incision of the inferior turbinate and with gentle removal of the clot, this was pulsatile, clearly the source of the patient's epistaxis. A combination of monopolar and bipolar cautery was used to control the bleeding. Once the bleeding was controlled, a Merocel sponge was cut to approximately 5 cm in length, placed into the left nasal cavity, and secured to the face with Steri- Strips. The patient was then returned to the care of the anesthesiologist, extubated. [id number]/[facility] #: [id number] BRAYAN
--- NOTE | 2017-12-26 09:43 | DS ---
AMENDED REPORT NOW INCLUDES COSIGNER DESIGNATION - ESIGNED BEFORE ADJUSTMENTS CC: Dr. Lopez; Dr. Chago Butcher; Dr. Bhaskar Teran * DISCHARGE SUMMARY: DATE OF ADMISSION: 12/24/17. DATE OF DISCHARGE: 12/25/17. PRIMARY CARE PROVIDER: Dr. Lopez. MY ATTENDING WHILE IN THE HOSPITAL: Dr. Marco Kovacs.* (DICTATED BY YAIR MELCHOR) CONSULTING EARS, NOSE, AND THROAT DOCTOR: Dr. Chago Butcher. OUTPATIENT EARS, NOSE, AND THROAT DOCTOR: Dr. Bhaskar Teran. PRIMARY DISCHARGE DIAGNOSIS: Epistaxis. SECONDARY DISCHARGE DIAGNOSES: 1. Hypothyroidism. 2. Chronic sinus infections, status post sinus surgery. 3. Variable immune deficiency. STUDIES DONE WHILE IN THE HOSPITAL: EKG from 12/24/17, read as normal sinus rhythm. No ST segment elevations or other abnormalities. Normal axis, rate of 83, QTc of 437. No abnormalities. MEDICATIONS AT DISCHARGE: 1. Levothyroxine 75 mcg p.o. q.a.m. 2. Famotidine 20 mg p.o. q.p.m. 3. Gamunex 5 g IV monthly. 4. Benadryl 25 mg p.o. q.6 hours as needed. 5. Sykeston 5/325 two tabs p.o. q.4 hours as needed. 6. Tylenol 650 mg p.o. q.4 hours as needed. 7. Clindamycin 150 mg p.o. t.i.d. x15. HOSPITAL COURSE: This is a brief summary of the patient's presentation. For more details, please see the history and physical from YAIR Dolan, on 12/24/17. In brief, the patient is a 37-year-old female with past medical history significant for the above, who recently underwent sinus surgery with no complications except for intermittent nasal bleeding on and off. The patient on the day of admission bent over and noticed blood dripping from one side of her nose. She attempted to apply pressure and was not able to control the bleeding. She presented to the emergency department and nasal packing was unable to control the bleeding. Dr. Butcher of ENT was contacted and she underwent an endoscopic epistaxis control showing brisk bleeding from the anterior incision of the inferior turbinate, which was cauterized and Merocel was placed on it and affixed to the face with Steri-Strips. The patient noticed no additional bleeding from her nose with only slight amount of watery discharge. The patient's hemoglobin on admission was 12.4, dropped to 11.6 overnight. The patient's creatinine was 1.05, on admission, which is consistent with her baseline. The patient had an uneventful night and had no hypotension. The patient was initially tachycardic postsurgically and her tachycardia subsided. The patient had no symptoms and was stable now for discharge on 12/25/17. PHYSICAL EXAMINATION ON THE DAY OF DISCHARGE: General: The patient is a 37- year- old female, who appears stated age and sitting comfortably in bed, in no acute distress. Vital Signs: At the time of discharge, temperature 98.4, pulse rate 88, respiratory rate 16, oxygen saturation 97% on room air, blood pressure 109/64. HEENT: Head normocephalic, atraumatic. Sclerae anicteric. No conjunctival injection. Right naris unremarkable. Left naris obscured by strings securing Merocel dressing to the patient's nose. No signs of bleeding. Throat shows petechiae. No blood in the posterior pharynx. No discharge, erythema, or exudates. Neck: Supple, nontender. No lymphadenopathy. No carotid bruits auscultated. No JVD. Cardiac: Regular rate and rhythm. No clicks, murmurs, gallops, or rubs. Pulses are 2+ in bilateral dorsalis pedis, posterior tibialis, and radial areas. Respiratory: Clear to auscultation bilaterally. No wheezes, rales, or rhonchi. Good air exchange bilaterally. Abdomen: Soft, nontender, and nondistended. Bowel sounds present and normoactive in all 4 quadrants. No hepatosplenomegaly. No abdominal bruits auscultated. Genitourinary: No suprapubic or CVA tenderness. Skin: Clean, dry, and intact. No rash. Neuro: Cranial nerves II through XII are intact. No focal deficits. Alert and oriented x3. Psychiatric: Pleasant and cooperative. LABORATORY DATA ON DAY OF DISCHARGE: White blood cell count 10.1, hemoglobin 11.6, platelet count 282. DISCHARGE PLAN: The patient will be discharged to home. The patient will keep the packing in her nose for 5 days until she can follow up with Ear, Nose, and Throat in their office on 12/29/17. The patient will have clindamycin 150 mg p.o. t.i.d. to cover as prophylaxis for antibiotic growth in the packing in her nose. The patient should monitor for recurrent epistaxis and return to the emergency department for uncontrolled bleeding, dizziness, chest pain, shortness of breath, or other alarming symptoms. The patient should have a regular unrestricted diet and engage in activity as tolerated. The patient to follow up with her primary care doctor within 1 week for general medical management and should continue with her IVIG infusions. TIME SPENT: Approximately, 45 minutes was spent on this discharge, 20 of which was spent [id number] with the patient obtaining history and physical and discussing treatment plan. YAIR MELCHOR [id number]/[facility] #: [id number] BRAYAN
== END 2017-12-25 13:30 | disposition home or self-care (01) ==
LOC: ED 19:54 → SSU 21:59
PROVIDERS: ADMIT Otolaryngology; ATTEND Student in an Organized Health Care Education/Training Program
PROC: 0W3Q8ZZ Control Bleeding in Respiratory Tract, Via Natural or Artificial Opening Endoscopic (ICD-10-PCS; principal; 2017-12-24 23:00)
DX: R04.0 Epistaxis (principal); E03.9 Hypothyroidism, unspecified; D83.9 Common variable immunodeficiency, unspecified; Z79.899 Other long term (current) drug therapy; Z88.1 Allergy status to other antibiotic agents; J32.9 Chronic sinusitis, unspecified
CPT/HCPCS: 30901; 36415; 80048; 84702; 85025; 85610; 85730; 86850; 86900; 86901; 93005; 96374; 99283; A9270-GY; G0378; J0330; J1100; J2250; J2704; J3010

== ENCOUNTER 2018-07-09 20:21 | Emergency (ER) | payer OTHER ==
--- OUTSIDE RECORDS SUMMARY | 2018-07-09 20:36 | XMS REPORT | Continuity of Care Document ---
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 [employer] Tobacco Use Start: Unknown Never Smoked Cigarettes ETOH Use Occasionally consumes alcohol Recreational Drug Use Denies Drug Use Tobacco Use Start: Unknown Patient has never smoked Smoking Status Reviewed: 08/13/17 Patient has never smoked Exercise Type/Frequency Exercises regularly Allergies, Adverse Reactions, Alerts Date Description Reaction Status Severity Comments 02/13/2017 Cefuroxime Anaphylaxis Active Severe 08/05/2017 Oranges Active 08/05/2017 Apples Active 09/15/2017 Doxycycline Active 02/18/2018 Peaches Rash, itching, swelling Active 05/18/2018 Yoruba Seasoning Tongue swelling Active Severe 05/18/2018 Blueberries Tongue swelling Active Severe 03/30/2014 NKDA Inactive Medications Medication Date Status Form Strength Qnty SIG Indications Ordering Provider Bactrim DS 07/06 Active Tablets 800-160mg 14tab take 1 N39.0 s tablet by Kerline mccollum MD every 12 hours for 7 days Nuvaring 05/18 Active Ring 0.12-0.01 1unit Insert 1 5mg/24HR s ring SOY Sidhu vaginally every [address] for 3 weeks, remove, and replace with a new ring after 7 day break for control Meclizine HCL 11/11 Active Tablets 25mg 60tab 1-2 po tid H81.399 Fatuma s prn robina Bob [employer] Levothyroxine 07/31 Active Tablets 75mcg 30tab Take One Judi s Tablet By Amber Lopez M.D., Every Day R.D. One Daily For 05/30 Active Tablets Judi Pa Lopez, R.D. Gamunex Active Unknown 0000 Zofran Active Tablets 4mg 30tab 1 tab by Giuliana /0000 s mouth SOY Sidhu three times a day nausea Hydrochlorothiazi Active Tablets 25mg Take One Unknown Tablet By Mouth Every Morning Clindamycin HCL 02/18 Hx Capsules 300mg 21cap take 1 J32.9 Judi s capsule by Zain Lopez M.D., 03/27 every 8 R.D. /2018 hours for 7 days Clindamycin HCL 10/08 Hx Capsules 300mg 21cap take 1 J32.9 Agustin s capsule by Kerline mccollum MD 12/30 every hours for 7 days Clindamycin HCL 09/15 Hx Capsules 300mg 21cap take 1 J32.9 Agustin s capsule by Kerline mccollum MD 10/08 every hours for 7 days Proair HFA 09/15 Hx Aerosol 108(90Bas 17gm 1-2 puffs T36.4x5A Agustin e) every 6 Heetdavid - mcg/Act hours MD mark 01/21 needed Doxycycline 09/12 Hx Tablets 100mg 20tab 1 tab by Agustin cl s amber Churchill - twice a MD Cefuroxime Axetil 12/20 Hx Tablets 500mg 20tab one by J01.90 s mouth Sydni, - twice a [employer] 02/13 day for days Cefuroxime Axetil 11/11 Hx Tablets 500mg 20tab one by Hayden.Anthony s mouth Sydni, - twice a [employer] 12/03 day for days Ondansetron 11/11 Hx Tablets 4mg 15tab dissolve 1 Dispers s tab by Sydni, - mouth [employer] 01/21 times a day as needed nausea Levothyroxine 05/14 Hx Tablets 50mcg 30tab 1 by mouth Fatuma Sodium s every day Sydni, - [employer]C 07/31 Levothyroxine 02/27 Hx Tablets 25mcg 30tab take one Fatuma Sodium s tablet by Sydni, - mouth each [employer] 05/14 morning an empty stomach 1 hour prior to meals Cefuroxime Axetil 09/04 Hx Tablets 500mg 20tab one by Hayden.Anthony s mouth Sydni, - twice a [employer] 02/05 day for days Fluticasone 09/04 Hx Suspension 50mcg/Act 16uni 2 sprays Katheryn01.Anthony ts each Sydni, - nostril [employer] 02/05 /2015 Levaquin 08/07 Hx Tablets 750mg Zain Lopez M.D., 02/05 R.D. /2015 Zofran 08/07 Hx Tablets 4mg Zain Lopez M.D., 08/07 R.D. /2015 Meclizine HCL 08/07 Hx Tablets 25mg 60tab 1-2 po tid H81.399 Zain Neal M.D., 02/05 R.D. /2015 Cefuroxime Axetil 05/29 Hx Tablets 500mg 20tab 1 po bid J01.90 Zain Arguelles M.D., 08/07 R.D. /2015 Tessalon Perles 05/22 Hx Capsules 100mg 60cap take 1 R05 Agustin s capsule by Kerline - mouth 3 MD 08/07 times per day as needed for cough Amoxicillin/Clavu 04/17 Hx Tablets 875-125mg 20tab 1 tablet H66.91 Fatuma lanate s twice a Sydni, - day x 10 [employer] Econazole Nitrate 10/11 Hx Cream 1% 15gm apply to chest area Sydni, - twice a [employer] No Active 03/30 Hx Fatuma Medications Sydni, - [employer] 03/30 Ketorolac 03/30 Hx Tablets 10mg 30thi take 1 724.5 Fatuma Tromethamine rty tablet by Sydni, - mouth [employer] 05/30 every hours as needed for pain Hydrocodone-Aceta 03/30 Hx Tablets 5-325mg 15fif 1 by mouth 724.5 Fatuma minophen teen q4 - 6 Sydni, - hours as [employer] 05/30 needed Carisoprodol 03/30 Hx Tablets 350mg 10ten 07/01 - 1 724.5 Fatuma /2013 tablet Sydni, - three [employer] 05/30 times day as needed muscle spasm Fluticasone Hx Suspension 50mcg/Act Use 2 Unknown Propionate /0000 Puffs In - Each 12/30 Nostril Once Daily Azelastine HCL Hx Solution 0.15% Use 2 Unknown (Nasal) /0000 Sprays In - Each 12/30 Nostril Once Daily Medications Administered in Office Medication Date Status Form Strength Qnty SIG Indications Ordering Provider Phenergan Administered Injection Giuliana Injection (Up 018 [place], COLD STRIP ROLLER To 50MG) Injection Administered Injection Giuliana Ketorolac 018 [place], COLD STRIP ROLLER Tromethamine Per 15 MG (Toradol) Immunizations CPT Code Status Date Vaccine Lot # [id number] Given 03/11/2018 Influenza Virus Vaccine, Quadrivalent, 3 Yr > [id number] Quad, Preserv Free 89213 Given 03/25/2017 Influenza Virus Vaccine, Quadrivalent, 3 Yr > [id number] Quad, Preserv Free [id number] Given 04/09/2016 Influenza Virus Vaccine, Quadrivalent, 3 Yr > [id number] Quad, Preserv Free 04898 Given 03/28/2015 Influenza Virus Vaccine, Quadrivalent, 3 Yr > [id number] Quad, Preserv Free 74701 Given 03/21/2014 Influenza Virus Vaccine, Quadrivalent, 3 Yr > [id number] Quad, Preserv Free 69140 Given 02/06/2012 Tdap (Adacel) 93135 Given 08/31/2009 Tdap (Adacel) Vital Signs Date Vital Result Comment 07/06/2018 2:14pm BP Systolic 110 mmHg BP Diastolic 70 mmHg Heart Rate 97 /min Body Temperature 99.2 F O2 % BldC Oximetry 98 % 05/18/2018 3:10pm Weight 163.00 lb Weight 73.937 kg BP Systolic 120 mmHg BP Diastolic 70 mmHg Heart Rate 88 /min Body Temperature 97.9 F Respiratory Rate 16 /min 04/27/2018 10:55am Weight 158.00 lb Weight 71.669 kg BP Systolic 112 mmHg BP Diastolic 78 mmHg Heart Rate 101 /min Body Temperature 97.2 F Respiratory Rate 16 /min O2 % BldC Oximetry 97 % 03/27/2018 9:50am Weight 160.00 lb Weight 72.576 kg BP Systolic 124 mmHg BP Diastolic 80 mmHg Heart Rate 85 /min Body Temperature 98.1 F Respiratory Rate 18 /min Height 63 inches 5'3" BMI (Body Mass Index) 28.3 kg/m2 Last Menstrual Period [id number] O2 % BldC Oximetry 98 % 02/18/2018 12:06pm Weight 161.00 lb Weight 73.030 kg BP Systolic 106 mmHg BP Diastolic 68 mmHg Heart Rate 66 /min Body Temperature 97.7 F Respiratory Rate 16 /min O2 % BldC Oximetry 98 % 01/21/2018 4:44pm Weight 162.00 lb Weight 73.483 kg BP Systolic 130 mmHg BP Diastolic 90 mmHg Heart Rate 82 /min Body Temperature 99.1 F Respiratory Rate 16 /min O2 % BldC Oximetry 99 % 12/30/2017 10:17am Weight 164.00 lb Weight 74.390 kg BP Systolic 116 mmHg BP Diastolic 70 mmHg Heart Rate 72 /min Body Temperature 97.3 F Respiratory Rate 16 /min O2 % BldC Oximetry 98 % 10/08/2017 10:33am Weight 170.00 lb Weight 77.112 kg BP Systolic 125 mmHg BP Diastolic 82 mmHg Heart Rate 76 /min Body Temperature 98.4 F O2 % BldC Oximetry 95 % 09/29/2017 12:30pm Weight 174.00 lb Weight 78.926 kg BP Systolic 128 mmHg BP Diastolic 88 mmHg Heart Rate 76 /min Body Temperature 98.9 F Respiratory Rate 16 /min O2 % BldC Oximetry 98 % 09/15/2017 2:51pm Weight 173.00 lb Weight 78.473 kg BP Systolic 125 mmHg BP Diastolic 78 mmHg Heart Rate 112 /min Body Temperature 99.1 F O2 % BldC Oximetry 98 % 09/12/2017 10:19am Weight 172.00 lb Weight 78.019 kg BP Systolic 120 mmHg BP Diastolic 84 mmHg Heart Rate 88 /min Body Temperature 98.2 F O2 % BldC Oximetry 99 % 08/05/2017 9:29am Weight 173.00 lb Weight 78.473 kg BP Systolic 112 mmHg BP Diastolic 70 mmHg Heart Rate 72 /min Body Temperature 98.1 F Respiratory Rate 16 /min Height 63.5 inches 5'3.50" BMI (Body Mass Index) 30.2 kg/m2 07/01/2017 11:31am Weight 167.00 lb Weight 75.751 kg BP Systolic 100 mmHg BP Diastolic 68 mmHg Heart Rate 88 /min Body Temperature 97.7 F Respiratory Rate 14 /min O2 % BldC Oximetry 99 % 06/24/2017 12:19pm Weight 167.00 lb Weight 75.751 kg BP Systolic 100 mmHg BP Diastolic 80 mmHg Heart Rate 72 /min Body Temperature 98.1 F O2 % BldC Oximetry 98 % 04/03/2017 9:32am Weight 167.00 lb Weight 75.751 kg BP Systolic 100 mmHg BP Diastolic 60 mmHg Heart Rate 84 /min Body Temperature 98.3 F 03/19/2017 9:16am Weight 166.00 lb Weight 75.298 kg BP Systolic 100 mmHg BP Diastolic 68 mmHg Heart Rate 68 /min Body Temperature 98.2 F Respiratory Rate 14 /min 12/20/2016 2:20pm Weight 167.00 lb Weight 75.751 kg BP Systolic 112 mmHg BP Diastolic 72 mmHg Heart Rate 72 /min Body Temperature 98.2 F Respiratory Rate 14 /min O2 % BldC Oximetry 98 % 12/03/2016 12:01pm Weight 165.00 lb Weight 74.844 kg BP Systolic 125 mmHg BP Diastolic 78 mmHg Heart Rate 80 /min Body Temperature 98.6 F O2 % BldC Oximetry 98 % 11/19/2016 11:29am Weight 166.00 lb Weight 75.298 kg BP Systolic 122 mmHg BP Diastolic 68 mmHg Heart Rate 71 /min Body Temperature 98.6 F O2 % BldC Oximetry 98 % 11/11/2016 4:20pm Weight 167.00 lb Weight 75.751 kg BP Systolic 128 mmHg BP Diastolic 72 mmHg Heart Rate 88 /min Body Temperature 99.8 F Respiratory Rate 16 /min 10/22/2016 10:56am Weight 172.00 lb Weight 78.019 kg BP Systolic 100 mmHg BP Diastolic 68 mmHg Heart Rate 60 /min Body Temperature 98.0 F Respiratory Rate 12 /min Last Menstrual Period [id number] 07/31/2016 4:14pm Weight 173.00 lb Weight 78.473 kg BP Systolic 116 mmHg BP Diastolic 78 mmHg Heart Rate 79 /min Body Temperature 98.2 F Respiratory Rate 14 /min O2 % BldC Oximetry 98 % 07/24/2016 11:32am Weight 175.00 lb Weight 79.380 kg BP Systolic 118 mmHg BP Diastolic 84 mmHg Heart Rate 103 /min Body Temperature 97.7 F Respiratory Rate 16 /min O2 % BldC Oximetry 98 % 05/14/2016 9:13am Weight 173.00 lb Weight 78.473 kg BP Systolic 120 mmHg BP Diastolic 85 mmHg Heart Rate 52 /min Body Temperature 98.7 F 02/06/2016 1:29pm Weight 170.00 lb Weight 77.112 kg BP Systolic 116 mmHg BP Diastolic 74 mmHg Heart Rate 88 /min Body Temperature 98.7 F Respiratory Rate 16 /min Height 62.75 inches 5'2.75" BMI (Body Mass Index) 30.4 kg/m2 Last Menstrual Period [id number] 09/13/2015 9:08am Weight 162.00 lb Weight 73.483 kg BP Systolic 108 mmHg BP Diastolic 74 mmHg Heart Rate 68 /min 09/05/2015 9:34am Weight 167.00 lb Weight 75.751 kg BP Systolic 110 mmHg BP Diastolic 64 mmHg Heart Rate 108 /min Body Temperature 98.4 F O2 % BldC Oximetry 98 % 08/07/2015 10:48am Weight 161.00 lb Weight 73.030 kg BP Systolic 100 mmHg BP Diastolic 60 mmHg Heart Rate 66 /min Body Temperature 98.5 F O2 % BldC Oximetry 98 % 05/29/2015 4:39pm Weight 166.00 lb Weight 75.298 kg BP Systolic 136 mmHg BP Diastolic 84 mmHg Heart Rate 76 /min Body Temperature 98.7 F O2 % BldC Oximetry 99 % 05/22/2015 9:09am Weight 167.00 lb Weight 75.751 kg BP Systolic 120 mmHg BP Diastolic 74 mmHg Heart Rate 82 /min Body Temperature 98.6 F O2 % BldC Oximetry 98 % 04/17/2015 10:25am Weight 160.00 lb Weight 72.576 kg BP Systolic 122 mmHg BP Diastolic 70 mmHg Heart Rate 68 /min Body Temperature 98.4 F 01/05/2015 10:24am Weight 156.00 lb Weight 70.762 kg BP Systolic 112 mmHg BP Diastolic 78 mmHg Heart Rate 62 /min 11/30/2014 11:31am Weight 156.00 lb Weight 70.762 kg BP Systolic 120 mmHg BP Diastolic 80 mmHg Heart Rate 60 /min 10/31/2014 1:35pm Weight 155.00 lb Weight 70.308 kg BP Systolic 124 mmHg BP Diastolic 82 mmHg Heart Rate 76 /min Body Temperature 98.4 F 06/17/2014 11:01am Weight 148.00 lb Weight 67.133 kg BP Systolic 116 mmHg BP Diastolic 68 mmHg Heart Rate 64 /min 05/30/2014 1:40pm Weight 148.00 lb Weight 67.133 kg BP Systolic 120 mmHg BP Diastolic 70 mmHg Heart Rate 68 /min Height 63.5 inches 5'3.50" BMI (Body Mass Index) 25.8 kg/m2 Last Menstrual Period [id number] 03/30/2014 8:54am Weight 150.00 lb Weight 68.040 kg BP Systolic 110 mmHg 130/80 repeat BP Diastolic 90 mmHg 130/80 repeat Heart Rate 68 /min Body Temperature 97.6 F Results Test Date Facility Test Result H/L Range Note Urine DIP 07/06/2018 In House Lab Leukocytes trace Neg (607)- - Urine Nitrites neg Neg Urobilinogen norm Norm Total Protein, Urine NEG Neg Urine pH 5 5-6 Urine Blood 250 High Neg Specific [place] 1.020 1.01-1.02 Urine Ketones neg Neg Urine Bilirubin neh Neg Urine Glucose norm Norm Laboratory test 05/18/2018 [facility] Lyme Disease Negative Negative 1, 2 finding [phone] Serology Sol[facility]ad Michele 05/18/2018 [facility] Ebv Capsid Positive Negative Comprehensive [phone] Ag IgG Ab Ebv Capsid Ag IgM Ab Negative Negative [facility] Nuclear Antigen Positive Negative [facility] Virus Interp See Comment 3 Laboratory 01/21/2018 [facility] TSH (Thyroid 0.79 N 0.34-5.60 4, 5 test finding [phone] Stimulating mcIU/mL Horm) CBC Auto Diff 12/30/2017 [facility] White Blood 7.3 N 3.5-10.8 6 [phone] Count 10^3/uL Red Blood Count 3.96 10^6/uL Low 4.00-5.40 Hemoglobin 12.4 g/dL N 12.0-16.0 Hematocrit 36 % N 35-47 Mean Corpuscular Volume 91 fL N 80-97 Mean Corpuscular Hemoglobin 31 pg N 27-31 Mean Corpuscular HGB Conc 34 g/dL N 31-36 Red Cell Distribution Width 14 % N 10.5-15 Platelet Count 352 10^3/uL N 150-450 Mean Platelet Volume 9.9 um3 N 7.4-10.4 Abs Neutrophils 4.9 10^3/uL N 1.5-7.7 Abs Lymphocytes 1.7 10^3/uL N 1.0-4.8 Abs Monocytes 0.5 10^3/uL N 0-0.8 Abs Eosinophils 0.1 10^3/uL N 0-0.6 Abs Basophils 0.1 10^3/uL N 0-0.2 Abs Nucleated RBC 0 10^3/uL Granulocyte % 66.7 % N 38-83 Lymphocyte % 22.9 % Low 25-47 Monocyte % 7.2 % High 0-7 Eosinophil % 2.1 % N 0-6 Basophil % 1.1 % N 0-2 Nucleated Red Blood Cells % 0 Comp Metabolic Panel 12/30/2017 [facility] Sodium 137 mmol/L N 135-145 [phone] Potassium 4.4 mmol/L N 3.5-5.0 Chloride 101 mmol/L N 101-111 Co2 Carbon Dioxide 26 mmol/L N 22-32 Anion Gap 10 mmol/L N 2-11 Glucose 84 mg/dL N 70-100 Blood Urea Nitrogen 13 mg/dL N 6-24 Creatinine 0.90 mg/dL N 0.51-0.95 BUN/Creatinine Ratio 14.4 N 8-20 Calcium 9.3 mg/dL N 8.6-10.3 Total Protein 7.3 g/dL N 6.4-8.9 Albumin 4.3 g/dL N 3.2-5.2 Globulin 3.0 g/dL N 2-4 Albumin/Globulin Ratio 1.4 N 1-3 Total Bilirubin 0.60 mg/dL N 0.2-1.0 Alkaline Phosphatase 47 U/L N 34-104 Alt 16 U/L N 7-52 Ast 17 U/L N 13-39 Egfr Non- 70.1 >60 Egfr 84.8 >60 7 Laboratory test 12/24/2017 [facility] HCG 4.29 mIU/mL 8 finding [phone] Type & Screen 12/24/2017 [facility] Patient Blood A Positive 9 [phone] Type Antibody Screen NEGATIVE CBC Auto Diff 12/24/2017 [facility] White Blood 6.2 10^3/uL N 3.5-10.8 [phone] Count Red Blood Count 3.99 10^6/uL Low 4.00-5.40 Hemoglobin 12.4 g/dL N 12.0-16.0 Hematocrit 36 % N 35-47 Mean Corpuscular Volume 91 fL N 80-97 Mean Corpuscular Hemoglobin 31 pg N 27-31 Mean Corpuscular HGB Conc 34 g/dL N 31-36 Red Cell Distribution Width 13 % N 10.5-15 Platelet Count 301 10^3/uL N 150-450 Mean Platelet Volume 9.4 um3 N 7.4-10.4 Abs Neutrophils 3.0 10^3/uL N 1.5-7.7 Abs Lymphocytes 2.3 10^3/uL N 1.0-4.8 Abs Monocytes 0.6 10^3/uL N 0-0.8 Abs Eosinophils 0.2 10^3/uL N 0-0.6 Abs Basophils 0.1 10^3/uL N 0-0.2 Abs Nucleated RBC 0 10^3/uL Granulocyte % 48.6 % N 38-83 Lymphocyte % 37.0 % N 25-47 Monocyte % 9.1 % High 0-7 Eosinophil % 3.9 % N 0-6 Basophil % 1.4 % N 0-2 Nucleated Red Blood Cells % 0 Inr/Protime 12/24/2017 [facility] Inr 1.09 High 0.77-1.02 [phone] Basic Metabolic 12/24/2017 [facility] Sodium 138 mmol /L N 135-145 Panel [phone] Potassium 3.9 mmol/L N 3.5-5.0 Chloride 102 mmol/L N 101-111 Co2 Carbon Dioxide 29 mmol/L N 22-32 Anion Gap 7 mmol/L N 2-11 Glucose 113 mg/dL High 70-100 Blood Urea Nitrogen 18 mg/dL N 6-24 Creatinine 1.05 mg/dL High 0.51-0.95 BUN/Creatinine Ratio 17.1 N 8-20 Calcium 9.0 mg/dL N 8.6-10.3 Egfr Non- 58.7 >60 Egfr 71.0 >60 10 Laboratory test 12/24/2017 [facility] Partial 26.8 seconds N 26.0-36.3 finding [phone] Thrombo Time PTT Comp Metabolic 11/05/2017 [facility] Sodium 138 mmol/ L Low 139-145 Panel [phone] Potassium 4.1 mmol/L N 3.5-5.0 Chloride 102 mmol/L N 101-111 Co2 Carbon Dioxide 28 mmol/L N 22-32 Anion Gap 8 mmol/L N 2-11 Glucose 114 mg/dL High 70-100 Blood Urea Nitrogen 10 mg/dL N 6-24 Creatinine 1.06 mg/dL High 0.51-0.95 BUN/Creatinine Ratio 9.4 N 8-20 Calcium 8.9 mg/dL N 8.6-10.3 Total Protein 6.5 g/dL N 6.4-8.9 Albumin 4.2 g/dL N 3.2-5.2 Globulin 2.3 g/dL N 2-4 Albumin/Globulin Ratio 1.8 N 1-3 Total Bilirubin 0.70 mg/dL N 0.2-1.0 Alkaline Phosphatase 55 U/L N 34-104 Alt 11 U/L N 7-52 Ast 17 U/L N 13-39 Egfr Non- 58.0 >60 Egfr 74.6 >60 11 Immunoglobulins 11/05/2017 [facility] Immunoglobulin G [phone] - 12 Serum Quant [phone] mg/dL 1590 Immunoglobulin M 123 mg/dL 37 - 286 Immunoglobulin A 224 mg/dL 61 - 356 Liver Function 11/05/2017 [facility] Direct 0.20 mg/ dL High 0.03-0.18 Panel [phone] Bilirubin Indirect Bilirubin 0.5 mg/dL N 0.3-1.0 Laboratory test 09/29/2017 [facility] Vitamin B12 833 pg/mL N 180-914 13, 14 finding [phone] Vitamin D Total 25(Oh) 34.5 ng/mL N 20-50 15 S.Pneumoniae Igg 09/02/2017 [facility] S. pneumoniae 605.8 >=2.3 AB 23 Serotyp [phone] Type 1 IgG AB g/mL S. pneumoniae Type 2 IgG AB 2.1 g/mL >=1.0 S. pneumoniae Type 3 IgG AB 7.9 g/mL >=1.8 S. pneumoniae Type 4 IgG AB 1.9 g/mL >=0.6 S. pneumoniae Type 5 IgG AB 94.0 g/mL >=10.7 S. pneumoniae Type 8 IgG AB 6.4 g/mL >=2.9 S. pneumoniae Type 9N IgG AB 1.8 g/mL >=9.2 S. pneumoniae Type 12F IgG AB See Comment g/mL >=0.6 16 S. pneumoniae Type 14 IgG AB 2.7 g/mL >=7.0 S. pneumoniae Type 17F IgG AB 130.7 g/mL >=7.8 S. pneumoniae Type 19F IgG AB 12.4 g/mL >=15.0 S. pneumoniae Type 20 IgG AB 2.2 g/mL >=1.3 S. pneumoniae Type 22F IgG AB 11.5 g/mL >=7.2 S. pneumoniae Type 23F IgG AB 13.8 g/mL >=8.0 S. pneumoniae Type 6B IgG AB 15.2 g/mL >=4.7 S. pneumoniae Type 10A IgG AB 191.2 g/mL >=2.9 S. pneumoniae Type 11A IgG AB 20.9 g/mL >=2.4 S. pneumoniae Type 7F IgG AB 3.1 g/mL >=3.2 S. pneumoniae Type 15B IgG AB 62.5 g/mL >=3.3 S. pneumoniae Type 18C IgG AB See Comment g/mL >=3.3 17 S. pneumoniae Type 19A IgG AB 4.1 g/mL >=17.1 S. pneumoniae Type 9V IgG AB 22.3 g/mL >=2.6 S. pneumoniae Type 33F IgG AB 13.8 g/mL >=1.7 18 Laboratory test 07/01/2017 [facility] TSH (Thyroid 2.08 N 0.34-5.60 19 finding [phone] Stim Horm) mcIU/mL CBC Auto Diff 06/25/2017 [facility] White Blood 16.0 High 3.5-10.8 [phone] Count 10^3/uL Red Blood Count 4.41 10^6/uL N 4.0-5.4 Hemoglobin 13.9 g/dL N 12.0-16.0 Hematocrit 41 % N 35-47 Mean Corpuscular Volume 93 fL N 80-97 Mean Corpuscular Hemoglobin 32 pg High 27-31 Mean Corpuscular HGB Conc 34 g/dL N 31-36 Red Cell Distribution Width 13 % N 10.5-15 Platelet Count 298 10^3/uL N 150-450 Mean Platelet Volume 9 um3 N 7.4-10.4 Abs Neutrophils 15.4 10^3/uL High 1.5-7.7 Abs Lymphocytes 0.4 10^3/uL Low 1.0-4.8 Abs Monocytes 0.1 10^3/uL N 0-0.8 Abs Eosinophils 0 10^3/uL N 0-0.6 Abs Basophils 0 10^3/uL N 0-0.2 Abs Nucleated RBC 0.01 10^3/uL Granulocyte % 96.3 % High 38-83 Lymphocyte % 2.8 % Low 25-47 Monocyte % 0.8 % Low 1-9 Eosinophil % 0 % N 0-6 Basophil % 0.1 % N 0-2 Nucleated Red Blood Cells % 0 Basic Metabolic 06/25/2017 [facility] Sodium 135 mmol /L N 133-145 Panel [phone] Potassium 3.5 mmol/L N 3.5-5.0 Chloride 105 mmol/L N 101-111 Co2 Carbon Dioxide 22 mmol/L N 22-32 Anion Gap 8 mmol/L N 2-11 Glucose 182 mg/dL High 70-100 Blood Urea Nitrogen 12 mg/dL N 6-24 Creatinine 0.84 mg/dL N 0.51-0.95 BUN/Creatinine Ratio 14.3 N 8-20 Calcium 8.8 mg/dL N 8.6-10.3 Egfr Non- 76.3 >60 Egfr 98.1 >60 20 Laboratory test 04/03/2017 [facility] TSH (Thyroid 1.34 mcIU/mL N 0.34-5.60 21 finding [phone] Stim Horm) T3 Total 0.80 ng/mL Low 0.87-1.78 22 Free T4 (Free Thyroxine) 1.29 ng/dL High 0.61-1.12 23 Laboratory test 04/03/2017 [facility] Surgical SEE RESULT 24 finding [phone] Pathology BELOW Laboratory test 10/22/2016 [facility] Amylase 41 U/L N 29-103 25 finding [phone] CBC Auto Diff 10/22/2016 [facility] White Blood 5.9 10^3/uL N 3.5-10 [phone] Count .8 Red Blood Count 4.38 10^6/uL N 4.0-5.4 Hemoglobin 13.6 g/dL N 12.0-16.0 Hematocrit 41 % N 35-47 Mean Corpuscular Volume 93 fL N 80-97 Mean Corpuscular Hemoglobin 31 pg N 27-31 Mean Corpuscular HGB Conc 33 g/dL N 31-36 Red Cell Distribution Width 13 % N 10.5-15 Platelet Count 254 10^3/uL N 150-450 Mean Platelet Volume 11 um3 High 7.4-10.4 Abs Neutrophils 3.1 10^3/uL N 1.5-7.7 Abs Lymphocytes 1.9 10^3/uL N 1.0-4.8 Abs Monocytes 0.5 10^3/uL N 0-0.8 Abs Eosinophils 0.2 10^3/uL N 0-0.6 Abs Basophils 0.1 10^3/uL N 0-0.2 Abs Nucleated RBC 0.01 10^3/uL N Granulocyte % 53.8 % N 38-83 Lymphocyte % 32.9 % N 25-47 Monocyte % 9.0 % N 1-9 Eosinophil % 3.2 % N 0-6 Basophil % 1.1 % N 0-2 Nucleated Red Blood Cells % 0.1 N Comp Metabolic Panel 10/22/2016 [facility] Sodium 136 mmol/L N 133-145 [phone] Potassium 4.3 mmol/L N 3.5-5.0 Chloride 101 mmol/L N 101-111 Co2 Carbon Dioxide 30 mmol/L N 22-32 Anion Gap 5 mmol/L N 2-11 Glucose 84 mg/dL N 70-100 Blood Urea Nitrogen 11 mg/dL N 6-24 Creatinine 0.99 mg/dL High 0.51-0.95 BUN/Creatinine Ratio 11.1 N 8-20 Calcium 9.5 mg/dL N 8.6-10.3 Total Protein 6.5 g/dL N 6.4-8.9 Albumin 4.3 g/dL N 3.2-5.2 Globulin 2.2 g/dL N 2-4 Albumin/Globulin Ratio 2.0 N 1-3 Total Bilirubin 0.60 mg/dL N 0.2-1.0 Alkaline Phosphatase 47 U/L N 34-104 Alt 12 U/L N 7-52 Ast 18 U/L N 13-39 Egfr Non- 63.1 N >60 Egfr 81.2 N >60 26 Laboratory test 10/22/2016 [facility] Lipase 26 U/L N 11.0-82.0 27 finding [phone] T3 Total 0.97 ng/mL N 0.87-1.78 28 Free T4 (Free Thyroxine) 1.34 ng/dL High 0.61-1.12 29 TSH (Thyroid Stim Horm) 0.61 mcIU/mL N 0.34-5.60 30 Thyroperoxidase AB 524.63 IU/mL High <9 31 Laboratory test finding 10/22/2016 In House Lab HCG DIP Test neg Neg (607)- - Urine DIP 10/22/2016 In House Lab Leukocytes neg Neg (607)- - Urine Nitrites neg Neg Urobilinogen norm Norm Total Protein, Urine neg Neg Urine pH 6 5-6 Urine Blood neg Neg Specific [place] 1.010 1.01-1.02 Urine Ketones neg Neg Urine Bilirubin neg Neg Urine Glucose norm Norm Laboratory test 07/18/2016 [facility] T3 Total 0.93 ng/mL N 0.87-1.78 32 finding [phone] Free T4 (Free Thyroxine) 1.10 ng/dL N 0.61-1.12 33 TSH (Thyroid Stim Horm) 1.48 mcIU/mL N 0.34-5.60 34 Thyroperoxidase AB 508.14 IU/mL High <9 35 Laboratory test 04/25/2016 [facility] TSH (Thyroid 2.46 mcIU/mL N 0.34-5.60 36 finding [phone] Stim Horm) T3 Total 0.98 ng/mL N 0.87-1.78 37 Free T4 (Free Thyroxine) 0.87 ng/dL N 0.61-1.12 38 Laboratory test 04/25/2016 [facility] Thyroperoxidase AB 797.13 High <9 39 finding [phone] IU/mL Urine DIP 02/06/2016 [facility] Leukocytes + Neg (607)- - Urine Nitrites NEG Neg Urobilinogen NORM Norm Total Protein, Urine NEG Neg Urine pH 7 High 5-6 Urine Blood NEG Neg Specific [place] 1.01 1.01-1.02 Urine Ketones NEG Neg Urine Bilirubin NEG Neg Urine Glucose NORM Norm CBC Auto Diff 02/06/2016 [facility] White Blood 7.4 10^3/uL N 3.5-10.8 [phone] Count Red Blood Count 4.39 10^6/uL N 4.0-5.4 Hemoglobin 13.5 g/dL N 12.0-16.0 Hematocrit 40 % N 35-47 Mean Corpuscular Volume 92 fL N 80-97 Mean Corpuscular Hemoglobin 31 pg N 27-31 Mean Corpuscular HGB Conc 33 g/dL N 31-36 Red Cell Distribution Width 14 % N 10.5-15 Platelet Count 275 10^3/uL N 150-450 Mean Platelet Volume 10 um3 N 7.4-10.4 Abs Neutrophils 4.7 10^3/uL N 1.5-7.7 Abs Lymphocytes 1.9 10^3/uL N 1.0-4.8 Abs Monocytes 0.4 10^3/uL N 0-0.8 Abs Eosinophils 0.3 10^3/uL N 0-0.6 Abs Basophils 0.1 10^3/uL N 0-0.2 Abs Nucleated RBC 0 10^3/uL N Granulocyte % 63.8 % N 38-83 Lymphocyte % 25.5 % N 25-47 Monocyte % 5.7 % N 1-9 Eosinophil % 3.7 % N 0-6 Basophil % 1.3 % N 0-2 Nucleated Red Blood Cells % 0 N Laboratory test 02/06/2016 [facility] Hemoglobin A1c 5.4 % N Less than 40 finding [phone] (Glyco HGB) 6.0 Comp Metabolic 02/06/2016 [facility] Sodium 137 N 133-145 Panel [phone] mmol/L Potassium 4.3 mmol/L N 3.5-5.0 Chloride 102 mmol/L N 101-111 Co2 Carbon Dioxide 30 mmol/L N 22-32 Anion Gap 5 mmol/L N 2-11 Glucose 90 mg/dL N 70-100 Blood Urea Nitrogen 11 mg/dL N 6-24 Creatinine 0.89 mg/dL N 0.51-0.95 BUN/Creatinine Ratio 12.4 N 8-20 Calcium 9.3 mg/dL N 8.6-10.3 Total Protein 6.5 g/dL N 6.4-8.9 Albumin 4.3 g/dL N 3.2-5.2 Globulin 2.2 g/dL N 2-4 Albumin/Globulin Ratio 2.0 N 1-3 Total Bilirubin 0.50 mg/dL N 0.2-1.0 Alkaline Phosphatase 46 U/L N 34-104 Alt 11 U/L N 7-52 Ast 19 U/L N 13-39 Egfr Non- 71.8 N >60 Egfr 92.3 N >60 41 Laboratory test 02/06/2016 [facility] TSH (Thyroid 2.56 mcIU/mL N 0.34-5.60 42 finding [phone] Stim Horm) T3 Total 1.01 ng/mL N 0.87-1.78 43 Free T4 (Free Thyroxine) 0.95 ng/dL N 0.61-1.12 44 Thyroxine 7.00 ?g/dL N 6.09-12.23 45 Thyroperoxidase AB 602.54 IU/mL High <9 46 Laboratory test 02/06/2016 [facility] Cytology SEE RESULT 47 finding [phone] BELOW Human Papilloma Virus Rna Negative N Negative 48 Laboratory test 09/13/2015 [facility] Surgical SEE RESULT 49 finding [phone] Pathology BELOW Urinalysis 08/06/2015 [facility] Urine Color Yellow N Profile [phone] Urine Appearance Cloudy N Urine Specific [place] 1.011 N 1.010-1.030 Urine pH 6.0 N 5-9 Urine Urobilinogen Negative N Negative Urine Ketones Trace Abnormal Negative Urine Protein Negative N Negative Urine Leukocytes Negative N Negative Urine Blood Negative N Negative Urine Nitrite Negative N Negative Urine Bilirubin Negative N Negative Urine Glucose Negative N Negative CBC Auto 08/06/2015 [facility] White Blood 11.2 10^3/ uL High 3.5-10.8 Diff [phone] Count Red Blood Count 4.36 10^6/uL N 4.0-5.4 Hemoglobin 13.5 g/dL N 12.0-16.0 Hematocrit 42 % N 35-47 Mean Corpuscular Volume 95 fL N 80-97 Mean Corpuscular Hemoglobin 31 pg N 27-31 Mean Corpuscular HGB Conc 32 g/dL N 31-36 Red Cell Distribution Width 13 % N 10.5-15 Platelet Count 271 10^3/uL N 150-450 Mean Platelet Volume 10 um3 N 7.4-10.4 Abs Neutrophils 10.1 10^3/uL High 1.5-7.7 Abs Lymphocytes 0.7 10^3/uL Low 1.0-4.8 Abs Monocytes 0.3 10^3/uL N 0-0.8 Abs Eosinophils 0 10^3/uL N 0-0.6 Abs Basophils 0.1 10^3/uL N 0-0.2 Abs Nucleated RBC 0.01 10^3/uL N Granulocyte % 90.1 % High 38-83 Lymphocyte % 6.4 % Low 25-47 Monocyte % 2.6 % N 1-9 Eosinophil % 0.4 % N 0-6 Basophil % 0.5 % N 0-2 Nucleated Red Blood Cells % 0.1 N Comp Metabolic Panel 08/06/2015 [facility] Sodium 135 mmol/L N 133-145 [phone] Potassium 4.0 mmol/L N 3.5-5.0 Chloride 104 mmol/L N 101-111 Co2 Carbon Dioxide 25 mmol/L N 22-32 Anion Gap 6 mmol/L N 2-11 Glucose 114 mg/dL High 70-100 Blood Urea Nitrogen 16 mg/dL N 6-24 Creatinine 0.91 mg/dL N 0.51-0.95 BUN/Creatinine Ratio 17.6 N 8-20 Calcium 8.5 mg/dL Low 8.6-10.3 Total Protein 6.5 g/dL N 6.4-8.9 Albumin 4.2 g/dL N 3.2-5.2 Globulin 2.3 g/dL N 2-4 Albumin/Globulin Ratio 1.8 N 1-3 Total Bilirubin 0.60 mg/dL N 0.2-1.0 Alkaline Phosphatase 44 U/L N 34-104 Alt 14 U/L N 7-52 Ast 20 U/L N 13-39 Egfr Non- 70.4 N >60 Egfr 90.5 N >60 50 Urine DIP 05/30/2014 [facility] House [facility] Specific [place] 1.025 High 1.01-1.02 (607)- - Urine pH 5 5-6 Leukocytes neg Neg Urine Nitrites neg Neg Total Protein, Urine trace Neg Urine Glucose norm Norm Urine Ketones ++ Neg Urobilinogen norm Norm Urine Bilirubin neg Neg Urine Blood 50 High Neg Urine DIP 03/30/2014 In House Lab Specific [place] 1.005 Low 1.01-1.02 (607)- - Urine pH 8 High 5-6 Leukocytes TRACE Neg Urine Nitrites NEG Neg Total Protein, Urine TRACE Neg Urine Glucose NORM Norm Urine Ketones 50 High Neg Urobilinogen NORM Norm Urine Bilirubin + Neg Urine Blood TRACE Neg Urinalysis Profile 03/30/2014 [facility] Urine Color Yellow N [phone] Urine Appearance Cloudy N Urine Specific [place] 1.024 N 1.010-1.030 Urine pH 7.0 N 5-9 Urine Urobilinogen Negative N Negative Urine Ketones Negative N Negative Urine Protein 1+(30 mg/dL) Abnormal Negative Urine Leukocytes Negative N Negative Urine Blood Negative N Negative Urine Nitrite Negative N Negative Urine Bilirubin Negative N Negative Urine Glucose Negative N Negative Urine White Blood Cell Trace N Absent Urine Red Blood Cell Trace N Absent Urine Bacteria Absent N Absent Urine Squamous Epithelial Cell Present Abnormal Absent 1 [id number] No evidence of antibodies to B. burgdorferi detected. False negative results may occur in recently infected patients (<=2 weeks) due to low or undetectable antibody levels to B. burgdorferi. If recent exposure is suspected, a second sample should be collected and tested in 2-4 weeks. Test Performed by: [facility] [place] [address] 3 RESULT: Results suggest past infection. ADDITIONAL INFORMATION In most populations, at least 90% of the adult population will have been infected with EBV sometime in the past and therefore, will be positive for anti-VCA/IgG and anti- EBNA. Antibodies to EBNA develop 6-8 weeks after primary infection and remain present for life. Presence of VCA/ IgM antibodies indicates recent primary infection with EBV. Test Performed by: [facility] - [address] [id number] 4 [id number] 7 Because ethnic data is not always readily available, this report includes an eGFR for both -Americans and non- Americans. The National Kidney Disease Education Program (NKDEP) does not endorse the use of the MDRD equation for patients that are not between the ages of 18 and 70, are , have extremes of body size, muscle mass, or nutritional status, or are non- or non-. According to the National Kidney Foundation, irrespective of diagnosis, the stage of the disease is based on the level of kidney function: Stage Description GFR(mL/min/1.73 m(2)) 1 Kidney damage with normal or decreased GFR 90 2 Kidney damage with mild decrease in GFR 60-89 3 Moderate decrease in GFR 30-59 4 Severe decrease in GFR 15-29 5 Kidney failure <15 (or dialysis) 8 <5.0 Negative 5.0 - 25.0 Indeterminate (Repeat testing recommended after 72 hours) >25.0 Positive Perimenopausal women can display HCG levels of up to 20 mIU/mL 9 BLOODY NOSE FOR AN HOUR/HAD SURGERY FOR SINUSES 4 10 Because ethnic data is not always readily available, this report includes an eGFR for both -Americans and non- Americans. The National Kidney Disease Education Program (NKDEP) does not endorse the use of the MDRD equation for patients that are not between the ages of 18 and 70, are , have extremes of body size, muscle mass, or nutritional status, or are non- or non-. According to the National Kidney Foundation, irrespective of diagnosis, the stage of the disease is based on the level of kidney function: Stage Description GFR(mL/min/1.73 m(2)) 1 Kidney damage with normal or decreased GFR 90 2 Kidney damage with mild decrease in GFR 60-89 3 Moderate decrease in GFR 30-59 4 Severe decrease in GFR 15-29 5 Kidney failure <15 (or dialysis) 11 Because ethnic data is not always readily available, this report includes an eGFR for both -Americans and non- Americans. The National Kidney Disease Education Program (NKDEP) does not endorse the use of the MDRD equation for patients that are not between the ages of 18 and 70, are , have extremes of body size, muscle mass, or nutritional status, or are non- or non-. According to the National Kidney Foundation, irrespective of diagnosis, the stage of the disease is based on the level of kidney function: Stage Description GFR(mL/min/1.73 m(2)) 1 Kidney damage with normal or decreased GFR 90 2 Kidney damage with mild decrease in GFR 60-89 3 Moderate decrease in GFR 30-59 4 Severe decrease in GFR 15-29 5 Kidney failure <15 (or dialysis) 12 Test Performed by: [address] [id number] 13 [id number] Normal Range 180 to 914 Indeterminate Range 145 to 180 Deficient Range <145 15 [id number] No result available due to non-linear dilution response for this serotype. See Interpretation. 17 No result available due to non-linear dilution response for this serotype. See Interpretation. 18 Unable to quantitate serotype 12F (12) and serotype 18C (56) due to nonlinear dilution response of patient sample. Overall interpretation of pneumococcal antibody serology panel can be based on the reported 21 serotypes. Either of the two following conditions would be consistent with a normal response to Streptococcus pneumoniae vaccination: Antibody concentrations greater than or equal to the reference value for at least 50% of serotypes in either a pre- or post-vaccination sample. Antibody concentrations increased by 2-fold or greater for at least 50% of serotypes when comparing the pre- to the post-vaccination results. Optimal cut-offs (reference values) were derived by measuring serotype-specific IgG antibody levels in an adult cohort of 100 healthy individuals (previously unvaccinated) before and after pneumococcal vaccination and identifying the antibody level for each serotype that included the largest number of individuals with a negative response (below cut-off) pre-vaccination and a positive response (above cut-off) post-vaccination. ADDITIONAL INFORMATION All 23 serotypes assessed by this assay are included in the Pneumovax 23 vaccine. IgG antibody concentrations following Pneumovax 23 administration are a reflection of an individual's humoral immune response to polysaccharide antigens. Serotypes 1, 3, 4, 5, 6A (6), 14, 19F (19), 23F (23), 6B (26), 7F (51), 18C (56), 19A (57) and 9V (68) are included in the Prevnar-13 conjugate vaccine. Antibody concentrations following Prevnar-13 administration are a reflection of an individual's response to protein-conjugated antigens. Serotypes 2, 8, 9N (9), 12F (12), 17F (17), 20, 22F (22), 10A (34), 11A (43), 15B (54) and 33F (70) are present only in the Pneumovax 23 vaccine and not in Prevnar-13. Responses to these 11 serotypes are a reflection of an individual's response to polysaccharide antigens. Serotype 6A is only present in Prevnar-13. This test was developed and its performance characteristics determined by [facility] in a manner consistent with CLIA requirements. This test has not been cleared or approved by the U.S. Food and Drug Administration. Test Performed by: [address] [id number] 19 [id number] 20 Because ethnic data is not always readily available, this report includes an eGFR for both -Americans and non- Americans. The National Kidney Disease Education Program (NKDEP) does not endorse the use of the MDRD equation for patients that are not between the ages of 18 and 70, are , have extremes of body size, muscle mass, or nutritional status, or are non- or non-. According to the National Kidney Foundation, irrespective of diagnosis, the stage of the disease is based on the level of kidney function: Stage Description GFR(mL/min/1.73 m(2)) 1 Kidney damage with normal or decreased GFR 90 2 Kidney damage with mild decrease in GFR 60-89 3 Moderate decrease in GFR 30-59 4 Severe decrease in GFR 15-29 5 Kidney failure <15 (or dialysis) 21 [id number] 23 [id number] 24 SEE RESULT BELOW Name: TERI BULLOCK : [address]: Fatuma Bob NP Acct: [id number] Unit: [id number] AGE: 36 Location: [facility] Re04/03/17 SEX: F Status: REG REF SPEC: [id number] GISSELLE: 04/03/171017 SUBM DR: Fatuma Bob NP REQ: [id number] RECD: 04/03/171320 STATUS: SOUT _ ORDERED: LEVEL 4 COMMENTS: [id number] FINAL DIAGNOSIS Skin, left upper chest, excision: -- Polypoid seborrheic keratosis. CLINICAL HISTORY No history given GROSS DESCRIPTION The specimen is received in formalin labeled, Left Upper Chest, and consists of a 0.4 x 0.3 x 0.1 cm saini wrinkled pedunculated polypoid skin fragment with a 0.1 x 0.1 cm saini-white stalk. The specimen is inked, bisected and submitted entirely in one cassette. Signed (signature on file) David Hill MD 1256 END OF REPORT * ML=Testing performed at Main Lab DEPARTMENT OF PATHOLOGY, [address] [place] [address] David Hill M.D. Director [facility] # [id number] 25 [id number] 26 Because ethnic data is not always readily available, this report includes an eGFR for both -Americans and non- Americans. The National Kidney Disease Education Program (NKDEP) does not endorse the use of the MDRD equation for patients that are not between the ages of 18 and 70, are , have extremes of body size, muscle mass, or nutritional status, or are non- or non-. According to the National Kidney Foundation, irrespective of diagnosis, the stage of the disease is based on the level of kidney function: Stage Description GFR(mL/min/1.73 m(2)) 1 Kidney damage with normal or decreased GFR 90 2 Kidney damage with mild decrease in GFR 60-89 3 Moderate decrease in GFR 30-59 4 Severe decrease in GFR 15-29 5 Kidney failure <15 (or dialysis) 27 [id number] 30 [id number] 32 [id number] 33 [id number] 34 [id number] 35 [id number] 36 [id number] 37 [id number] 38 [id number] 39 [id number] 40 Therapeutic target for the treatment of diabetes Mellitus patients is <7% HBA1C, and in selective patients <6.0%.Please refer to [place] [employer] Diabetic care guidelines for further information. 41 Because ethnic data is not always readily available, this report includes an eGFR for both -Americans and non- Americans. The National Kidney Disease Education Program (NKDEP) does not endorse the use of the MDRD equation for patients that are not between the ages of 18 and 70, are , have extremes of body size, muscle mass, or nutritional status, or are non- or non-. According to the National Kidney Foundation, irrespective of diagnosis, the stage of the disease is based on the level of kidney function: Stage Description GFR(mL/min/1.73 m(2)) 1 Kidney damage with normal or decreased GFR 90 2 Kidney damage with mild decrease in GFR 60-89 3 Moderate decrease in GFR 30-59 4 Severe decrease in GFR 15-29 5 Kidney failure <15 (or dialysis) 42 [id number] 43 [id number] 44 [id number] 45 [id number] 46 [id number] 47 SEE RESULT BELOW Name: REJI BULLOCK : [address]: Fatuma Bob NP Acct: [id number] Unit: [id number] AGE: 35 Location: [facility] Re02/06/16 SEX: F Status: REG REF SPEC: [id number] GISSELLE: 02/06/16-[address] [facility] [address]: Fatuma Bob NP REQ: [id number] RECD: 02/06/16 STATUS: SOUT _ ORDERED: IMAGE ANALYSIS, HPV/Thin Prep COMMENTS: [id number] FINAL DIAGNOSIS Negative for Intraepithelial lesion or Malignancy A. Ectocervical/Endocervical Specimen Adequacy: Satisfactory of evaluation Transformation zone component identified Patient Information: HPV: High risk HPV RNA testing regardless of pap results. Actual Specimen Date: 02/06/16 Last Menstrual Date: 01/11/15 Spec Date if unknown: unknown Date Time Test Result Flag (u) Normal Range 02/06/16 1442 HPV RNA Negative Negative The high-risk HPV types detected by the assay include: 16, 18, 31, 33, 35, 39, 45, 51, 52, 56, 58, 59, 66, and 68. Signed (signature on file) ESTER Ogden (ASCP) 02/06 1315 This Pap test was evaluated with the assistance of the ThinPrep Test Imaging System. Due to cytologic findings at the schedule planning manager microscope, comprehensive manual rescreening by a Auto Brake Mechanic may be required. The Pap Smear is a screening test designed to aid in the detection of premalignant and malignant conditions of the uterine cervix. It is not a diagnostic procedure and should not be used as the sole means of detecting cervical cancer. Both false- positive and false- negative reports do occur. Depending on your risk status, a Pap smear should be obtained and evaluated every 1-3 years. END OF REPORT * ML=Testing performed at Main Lab DEPARTMENT OF PATHOLOGY, [address] [place] [address] David Hill M.D. Director [facility] # [id number] 48 The high-risk HPV types detected by the assay include: 16, 18, 31, 33, 35, 39, 45, 51, 52, 56, 58, 59, 66, and 68. 49 SEE RESULT BELOW Name: REJI BULLOCK : [address]: Fatuma Bob NP Acct: [id number] Unit: [id number] AGE: 34 Location: [facility] Re09/13/15 SEX: F Status: REG REF SPEC: GISSELLE: 09/13/150946 ASHER DR: Fatuma Bob NP REQ: [id number] RECD: 09/13/15 STATUS: SOUT _ ORDERED: LEVEL IV FINAL DIAGNOSIS Skin, left shoulder, punch biopsy: -- Benign, predominantly intradermal melanocytic nevus. CLINICAL HISTORY No history given. GROSS DESCRIPTION The specimen is received in formalin with no source identified, with a requisition labeled, Left Shoulder Nevus, and consists of a 0.2 cm saini-white hair bearing circular skin punch excised to a depth of 0.5 cm, which is entirely submitted in one cassette. Signed (signature on file) David Hill MD 1304 END OF REPORT * ML=Testing performed at Main Lab DEPARTMENT OF PATHOLOGY, [address] [place] [address] David Hill M.D. Director [facility] # [id number] 50 Because ethnic data is not always readily available, this report includes an eGFR for both -Americans and non- Americans. The National Kidney Disease Education Program (NKDEP) does not endorse the use of the MDRD equation for patients that are not between the ages of 18 and 70, are , have extremes of body size, muscle mass, or nutritional status, or are non- or non-. According to the National Kidney Foundation, irrespective of diagnosis, the stage of the disease is based on the level of kidney function: Stage Description GFR(mL/min/1.73 m(2)) 1 Kidney damage with normal or decreased GFR 90 2 Kidney damage with mild decrease in GFR 60-89 3 Moderate decrease in GFR 30-59 4 Severe decrease in GFR 15-29 5 Kidney failure <15 (or dialysis) Procedures Date Code Description Status 04/27/2018 41278 Therapeutic,Prophylactic,Or Diagnostic Inj,SC/Im Specify Completed Drug 04/03/2017 10855 BX Of Skin,Tissue, Mucous Membran Completed 09/13/2015 52211 BX Of Skin,Tissue, Mucous Membran Completed Encounters Type Date Location Provider Dx Diagnosis Office Visit 05/18/2018 Main Office Giuliana Sidhu NP N92.6 Irregular 3:15p menstruation, unspecified M79.18 Myalgia, other site Office Visit 04/27/2018 11:00a Main Office Giuliana Sidhu 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 unspecified, right ear J32.9 Chronic sinusitis, unspecified N63.20 Unspecified lump in the left breast, unspecified quadrant Office Visit 01/21/2018 4:45p Main Office Judi Lopez N63.20 Unspecified lump M.D., R.D. in the left breast, unspecified quadrant R63.4 Abnormal weight loss Office Visit 12/30/2017 10:15a Main Office Sherry Burger, R04.0 Epistaxis COLD STRIP ROLLER Office Visit 10/08/2017 10:30a Main Office Susanne Sarkar.9 Chronic sinusMD edwin unspecified Office Visit 09/29/2017 12:00p Main Office Katheryn Iglesias32.9 Chronic sinusitis, MBayD., R.D. 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 J32.9 Chronic sinusitis, unspecified Office Visit 06/24/2017 12:00p Main Office Fatuma Bob, T78.00xA Anaphylactic [employer]-C reaction due to unspecified food, init encntr Office Visit 03/19/2017 9:15a Main Office Fatuma Bob, L91.8 Other hypertrophic [employer] disorders of the skin Office Visit 12/20/2016 2:15p Main Office Fatuma Bob, J01.90 Acute sinusitis, [employer]IC[employer]-C unspecified Office Visit 12/03/2016 11:45a Main Office Fatuma Bob, J01.90 Acute sinusitis, [employer]IC[employer]-C unspecified F41.9 Anxiety disorder, unspecified Office Visit 11/19/2016 11:30a Main Office Andres Hook M79.671 Pain in right foot III, [employer]-C Office Visit 11/11/2016 4:15p Main Office Fatuma Bob, J01.90 Acute sinusitis, [employer]-C unspecified H66.92 Otitis media, unspecified, left ear Office Visit 10/22/2016 10:45a Main Office Fatuma Bob, R10.9 Unspecified [employer]-C abdominal pain E03.9 Hypothyroidism, unspecified Office Visit 07/31/2016 4:00p Main Office Fatuma Bob, E03.9 Hypothyroidism, [employer]IC[employer]-C unspecified Office Visit 07/24/2016 11:30a Main Office Agustin R20.2 Paresthesia of skin MD Kerline Office Visit 05/14/2016 9:00a Main Office Fatuma Bob, N64.9 Disorder of breast, [employer]-C unspecified Office Visit 02/06/2016 1:30p Main Office Fatuma Bob Z00.00 Encntr for general [employer]-C adult medical exam w/o abnormal findings R63.5 Abnormal weight gain Office Visit 09/05/2015 9:30a Main Office Fatuma Bob, J01.90 Acute sinusitis, [employer]IC[employer]-C unspecified Office Visit 08/07/2015 10:45a Main Office Judi Lopez, J01.90 Acute sinusitis, M.D., R.D. unspecified H81.399 Other peripheral vertigo, unspecified ear Office Visit 05/29/2015 4:15p Main Office Judi Lopez J01.90 Acute sinusitis, M.D., R.D. unspecified Office Visit 05/22/2015 9:15a Main Office Agustin Churchill R05 Cough MD Office Visit 04/17/2015 10:15a Main Office Fatuma Bob, H66.91 Otitis media, [employer]-C unspecified, right ear J01.90 Acute sinusitis, unspecified Office Visit 01/05/2015 10:15a Main Office Judi Lopez, 785.6 Lymph Nodes M.D., R.D. Enlargement Office Visit 11/30/2014 11:30a Main Office Judi Lopez, 785.6 Lymph Nodes M.D., R.D. Enlargement Office Visit 10/31/2014 1:30p Main Office Fatuma Bob, 995.3 Allergy Unspec [employer] Office Visit 06/17/2014 10:45a Main Office Fatuma Bob, 842.19 Sprains & Strains [employer] Hand Other Office Visit 05/30/2014 1:45p Main Office Judi Lopez, V70.0 Examination M.D., R.D. General Medical Routine AT Health Care Facility Office Visit 03/30/2014 8:45a Main Office Fatuma Bob, 724.5 Backache Unspec [employer] Plan of Treatment Future Appointment(s):08/24/2018 1:15 pm - Giuliana Sidhu NP at Main Rakznv2212/2018 - Agustin Churchill, MDM54.5 Low back painComments:There is some left- sided costovertebral angle tenderness. It is possible that this represents a ascending urinary tract infection.N39.0 Urinary tract infection, site not specifiedNew Medication:Bactrim DS 800-160 mg - take 1 tablet by mouth every 12 hours for 7 daysComments:She has an acute onset of UTI-like symptoms following administration of a new form of IVIG. there isblood in the sample, however she is on her period.We will get her on Bactrim. We are also culturingher urine.J01.90 Acute sinusitis, unspecifiedComments:It is appropriate to start her on Bactrim, she has a lot of experience with sinus infections, and this feels like her usual presentation.It appears that this new formulation of gammaglobulin is not working as well as the others. She will discuss this with Dr. Radford at her appointment on Friday.
[2018-07-09] MEDS ORDERED: NS 0.9% 1000 ML*IV.FLUID IV ONE (20:59)
[2018-07-09] MEDS ORDERED: Ibuprofen TAB* 400 MG PO ONE (21:00)
[2018-07-09] MEDS ORDERED: Metoclopramide IV* 5 MG/ML 2 ML VIAL IV SLOW PU ONE (21:00)
[2018-07-09] MEDS ORDERED: Morphine VIAL* 4 MG/ML VIAL (1 ml vial) IV ONE (21:00)
[2018-07-09] MEDS ORDERED: Piperacillin/Tazobac ADVAN(*) 3.375 GM in NS 0.9% 100 ML* 100 ML IVPB ONE (21:01)
--- NOTE | 2018-07-09 21:01 | ED ---
HPI Febrile Illness - HPI Summary HPI Summary: This pt is a 37 y/o female presenting to [facility] c/o lower back pain, abd pain, pain with urination, sinus pressure for the past 4 days. Pt reports she was diagnosed with a UTI and sinus infection 4 days ago and was placed on Bactrim. She has taken Bactrim 1 dose on Friday, 2 doses on Friday, 2 on Friday, and 2 today with minimal relief. Pt reports today she had a temperature of 100.7F and at 1910 she took 500 mg x2 of Advil and at 1800 she took Tylenol. She notes that she still has lower back pain, concentrated dark urine, pain with urination , sinus pressure over her eyes. Pt began with minimal fluid draining from right ear, postnasal drip, nausea and vomiting 4 days ago. Denies chest pain, SOB. Her prior sinus infection lasted for 2 years and had a surgery on October 2017 for this. This is her first sinus infection since her surgery. Denies hx of kidney infection. PMHx: Common variable immune deficiency (CVID), sinus infections. Pt has IgG infusions every [address] Radford. Her medications include levothyroxine, hydrochlorothiazide. - History of Current Complaint Chief Complaint: EDGeneral Time Seen by Provider: 07/09/18 20:41 Hx Obtained From: Patient Hx Last Menstrual Period: 2016 Onset/Duration: Started Days Ago - 4, Still Present Timing: Lasting Days Current Severity: Moderate Pain Intensity: 4 Pain Scale Used: 0-10 Numeric Aggravating Factors: Nothing Alleviating Factors: Nothing Associated Signs and Symptoms: Drainage - from right ear, Nausea, Other: - POS: sinus pressure, postnasal drip, lower back pain, abd pain, concentrated dark urine, pain with urination. NEG: chest pain, SOB - Additional Pertinent History Primary Care Physician: [id number] - Allergy/Home Medications Allergies/Adverse Reactions: Allergies Allergy/AdvReac Type Severity Reaction Status Date / Time doxycycline Allergy Severe Difficulty Verified 06/26/18 09:16 Breathing cefuroxime Allergy Anaphylatic Verified 06/26/18 09:16 Shock PMH/Surg Hx/FS Hx/Imm Hx Endocrine/Hematology History: Reports: Hx Thyroid Disease - HYPOTHYROID Denies: Hx Blood Disorders, Hx Bone Marrow Disease, Hx Sickle Cell Disease, Hx Anemia Cardiovascular History: Denies: Hx Valvular Heart Disease Respiratory History: Reports: Hx Asthma - EXERCISE INDUCED, HAS INHALER, NEVER USES IT, Other Respiratory Problems/Disorders - CHRONIC RHINITIS, SINUSITIS FOR PAST 2 YRS GI History: Reports: Hx Gastroesophageal Reflux Disease, Other GI Disorders - HERNIA REPAIR AT 1 YRS OF AGE Denies: Hx Hiatal Hernia Musculoskeletal History: Denies: Hx Osteoporosis Sensory History: Reports: Hx Contacts or Glasses - BOTH, WILL WEAR GLASSES DOS Denies: Hx Cataracts, Hx Glaucoma, Hx Hearing Aid Opthamlomology History: Reports: Hx Contacts or Glasses - BOTH, WILL WEAR GLASSES DOS Denies: Hx Cataracts, Hx Glaucoma Neurological History: Reports: Hx Migraine Denies: Hx Seizures, Other Neuro Impairments/Disorders Psychiatric History: Reports: Hx Anxiety - ABLE TO CONTROL, NOT TAKING RX AT THIS TIME, Hx Depression - CURRENTLY MANAGEABLE Denies: Hx Eating Disorder - Surgical History Surgery Procedure, Year, and Place: HERNIA REPAIR [address] [facility] TONSILLECTOMY [facility] [place] Anesthesia Reactions: No - Immunization History Date of Tetanus Vaccine: UTD Date of Influenza Vaccine: 02/2017 Infectious Disease History: No Infectious Disease History: Denies: Traveled Outside the [place] in Last 30 Days - Family History Known Family History: Positive: Cardiac Disease - father, Hypertension, Diabetes , Other - prostate cancer, skin CA, hypothyroidism - Social History Alcohol Use: Rare Alcohol Amount: 1-2 drinks/week Hx Substance Use: No Substance Use Type: Reports: None Hx Tobacco Use: No Smoking Status (MU): Never Smoked Tobacco Have You Smoked in the Last Year: No Review of Systems Positive: Fever ENT: Other - POS: sinus pressure, fluid draining from right ear, postnasal drip Negative: Chest Pain Negative: Shortness Of Breath Positive: Abdominal Pain, Nausea Genitourinary: Other - POS: concentrated dark urine Positive: pain - with urination Musculoskeletal: Other - POS: lower back All Other Systems Reviewed And Are Negative: Yes Physical Exam - Summary Physical Exam Summary: VITAL SIGNS: Reviewed. GENERAL: Patient is a well-developed and nourished female who is lying comfortable in the stretcher. Patient is not in any acute respiratory distress. HEAD AND FACE: No signs of trauma. No ecchymosis, hematomas or skull depressions. Tenderness over the maxillary sinuses. EYES: PERRLA, EOMI x 2, No injected conjunctiva, no nystagmus. EARS: Hearing grossly intact. Ear canals and tympanic membranes are within normal limits. MOUTH: Oropharynx within normal limits. NECK: Supple, trachea is midline, no adenopathy, no JVD, no carotid bruit, no c- spine tenderness, neck with full ROM. CHEST: Symmetric, no tenderness at palpation LUNGS: Clear to auscultation bilaterally. No wheezing or crackles. CVS: Regular rate and rhythm, S1 and S2 present, no murmurs or gallops appreciated. ABDOMEN: Soft, left lower quadrant tenderness. Left CVA tenderness. No signs of distention. No rebound no guarding, and no masses palpated. Bowel sounds are normal. EXTREMITIES: FROM in all major joints, no edema, no cyanosis or clubbing. NEURO: Alert and oriented x 3. No acute neurological deficits. Speech is normal and follows commands. SKIN: Dry and warm Triage Information Reviewed: Yes Vital Signs On Initial Exam: Initial Vitals Temp Pulse Resp BP Pulse Ox 99.5 F 106 16 128/88 96 07/09/18 20:25 07/09/18 20:25 07/09/18 20:25 07/09/18 20:25 07/09/18 20:25 Vital Signs Reviewed: Yes Diagnostics - Vital Signs Vital Signs Temp Pulse Resp BP Pulse Ox 07/09/18 20:25 99.5 F 106 16 128/88 96 - Laboratory Result Diagrams: 07/09/18 21:14 07/09/18 21:14 Lab Statement: Any lab studies that have been ordered have been reviewed, and results considered in the medical decision making process. - CT Abdomen/Pelvis CT CT Interpretation Completed By: Radiologist Summary of CT Findings: IMPRESSION: 1. No acute findings. 2. Hypodense lesion located in the right dome of the liver. This measures approximatelyl 1.1 cm in greatest dimension and has a density of 40 Hounsfield units. This may represent a hemangioma. Benign features. No further follow-up. Dr. Macias has reviewed this report. CT Sinus CT Interpretation Completed By: Radiologist Summary of CT Findings: IMPRESSION: 1. The patient has had bilateral uncinectomies. Minimal mucoperiosteal thickening involving the maxillary sinuses. No air-fluid levels. No chronic bony changes. 2. The rest of the paranasal sinuses are clear. Dr. Macias has reviewed this report. Re-Evaluation - Re-Evaluation First Eval Re-Evaluation Time: 22:55 Change: Improved Comment: Pt is feeling better. I reviewed the CT results with the pt. She will be discharged home with prescriptions. Course/Dx - Course Course Of Treatment: Pt is a 37 y/o female, with hx of CVID and sinus infections , who presents with lower back pain, abd pain, pain with urination, sinus pressure for the past 4 days. Pt reports she was diagnosed with a UTI and sinus infection 4 days ago and was placed on Bactrim without much relief. Pt now with dark concentrated urine, fluid draining from right ear, postnasal drip, nausea, vomiting. Blood work and UA obtained. Potassium is 3.1, for which pt was given potassiums chloride. In the ED course the pt was given ibuprofen, solu-medrol, reglan, morphine, zosyn. Abdomen/Pelvis CT shows 1. No acute findings. 2. Hypodense lesion located in the right dome of the liver. This measures approximately 1.1 cm in greatest dimension and has a density of 40 Hounsfield units. This may represent a hemangioma. Benign features. No further follow-up. Sinus CT shows 1. The patient has had bilateral uncinectomies. Minimal mucoperiosteal thickening involving the maxillary sinuses. No air-fluid levels. No chronic bony changes. 2. The rest of the paranasal sinuses are clear. Pt is feeling better. She will be discharged home with prescriptions for Augmentin, Motrin, Deltasone. Pt was instructed to return to the ED for any worsening or new symptoms. Dx: mild sinusitis and UTI. - Diagnoses Provider Diagnoses: Sinusitis, UTI (urinary tract infection) Discharge - Sign-Out/Discharge Documenting (check all that apply): Patient Departure - Discharge home - Discharge Plan Condition: Stable Disposition: HOME Prescriptions: Amoxicillin/Clavulanate TAB* [Augmentin TAB 875*] 875 mg PO BID #20 tab Ibuprofen TAB* [Motrin TAB* 800 MG] 800 mg PO Q6H PRN #30 tab PRN Reason: pain and fever predniSONE TAB* [Deltasone 20 MG TAB*] 40 mg PO DAILY #6 tab Patient Education Materials: Urinary Tract Infection in Women (ED), Sinusitis ( ED) Referrals: Judi Nevarez MD [Primary Care Provider] - Additional Instructions: Please follow up with your primary care provider in 1-2 days. RETURN TO EMERGENCY DEPARTMENT FOR ANY NEW OR WORSENING SYMPTOMS. - Attestation Statements Document Initiated by Scribe: Yes Documenting Scribe: Carolina Tobar Provider For Whom Scribe is Documenting (Include Credential): Brayan Macias MD Scribe Attestation: ICarolina, scribed for Brayan Macias MD on 07/09/18 at 2304. Status of Scribe Document: Ready
[2018-07-09 21:23] LABS: ABS Basophils 0.1 10^3/ul (0-0.2); ABS Eosinophils 0.1 10^3/ul (0-0.6); ABS Lymphocytes 1.1 10^3/ul (1.0-4.8); ABS Monocytes 0.5 10^3/ul (0-0.8); ABS Neutrophils 4.7 10^3/ul (1.5-7.7); ABS Nucleated RBC 0 10^3/ul; Hematocrit 40 % (35-47); Hemoglobin 13.9 g/dl (12.0-16.0); Lymphocyte % 17.9 %; Mean Corpuscular HGB Conc 34 g/dl (31-36); Mean Corpuscular Hemoglobin 31 pg (27-31); Mean Corpuscular Volume 91 fL (80-97); Nucleated Red Blood Cells % 0; Platelet Count 331 10^3/ul (150-450); Red Blood Count 4.43 10^6/ul (4.00-5.40); Red Cell Distribution Width 14 % (10.5-15); White Blood Count 6.4 10^3/ul (3.5-10.8)
[2018-07-09 21:39] LABS: Albumin 4.3 g/dL (3.2-5.2); Albumin/Globulin Ratio 1.4 (1-3); BUN/Creatinine Ratio 11.1 (8-20); C Reactive Protein 1.64 mg/L (<8.01); Calcium 9.6 mg/dL (8.6-10.3); EGFR Non-African American 51.8 (>60); Potassium 3.1 mmol/L (3.5-5.0); Total Bilirubin 0.4 mg/dL (0.2-1.0); Total Protein 7.3 g/dL (6.4-8.9)
[2018-07-09] MEDS ORDERED: Potassium Chlor TAB* 20 MEQ TAB.ER PO ONE (22:03)
[2018-07-09 22:36] LABS: Urine Appearance Cloudy; Urine Bacteria Absent (Absent); Urine Bilirubin Negative (Negative); Urine Blood 3+ (Negative); Urine Color Amber; Urine Glucose Negative (Negative); Urine Ketones Trace (Negative); Urine Nitrite Negative (Negative); Urine Protein 1+(30 mg/dL) (Negative); Urine Red Blood Cell 3+(>10/hpf) (Absent); Urine Specific Gravity 1.031 (1.010-1.030); Urine Urobilinogen Negative (Negative); Urine White Blood Cell 1+(6-10/hpf) (Absent)
[2018-07-09] MEDS ORDERED: methylPREDNISolone 125 MG* 2 ML VIAL IV ONE (22:55)
[2018-07-09 23:41] VITALS: BP 118/63
== END 2018-07-09 23:40 | disposition home or self-care (01) ==
LOC: ED 20:21
DX: N39.0 Urinary tract infection, site not specified (principal); J32.9 Chronic sinusitis, unspecified; Z88.1 Allergy status to other antibiotic agents; J45.990 Exercise induced bronchospasm
CPT/HCPCS: 36415; 70486; 74176; 80053; 81003; 81015; 83605; 85025; 86140; 87040; 87086; 96365; 96375; 99283; A9270-GY; J2270; J2543; J2765; J2930

== ENCOUNTER 2019-03-08 15:09 | Emergency (ER) | payer OTHER ==
--- OUTSIDE RECORDS SUMMARY | 2019-03-08 15:18 | XMS REPORT | Continuity of Care Document ---
:1980 External Reference #:[id number] Author Name Berhane Radford MD (transmitted by agent of provider Alessia Dong) Address [address] [place] [address] Care Team Providers Name Role Phone Fatuma Bob, Care Team Information Urologist Md Unavailable Judi Lopez MD - Family Care Team Information Urologist Md Medicine Problems Active Problems Provider Date Allergic urticaria Berhane Radford MD Onset: 07/09/2017 Allergy to other foods Berhane Radford MD Onset: 07/09/2017 Chronic sinusitis Debra Persaud RPA-C Onset: 07/30/2017 Allergic rhinitis Debra Persaud RPA-C Onset: 07/30/2017 Personal history of anaphylaxis Debra Persaud RPA-C Onset: 2017 Common variable agammaglobulinemia Berhane Radford MD Onset: 09/19/2017 Allergic rhinitis due to pollen Berhane Radford MD Onset: 02/06/2018 Acute sinusitis Debra Persaud RPA-C Onset: 10/19/2018 Exercise-induced asthma Debra Persaud RPA-C Onset: 10/19/2018 Idiopathic urticaria Debra Persaud RPA-C Onset: 09/30/2018 Uncomplicated moderate persistent Debra Persaud RPA-C Onset: 2018 asthma Social History Type Date Description Comments Sex Unknown Tobacco Use Start: Unknown Never Smoked Cigarettes Tobacco Use Start: Unknown Patient has never smoked Tobacco Use Start: Unknown No Second Hand Smoke Exposure Smoking Status Reviewed: 11/11/18 No Second Hand Smoke Exposure Allergies, Adverse Reactions, Alerts Active Allergies Reaction Severity Comments Date Cefuroxime 07/09/2017 Doxycycline 09/19/2017 Apples 02/26/2018 Oranges 02/26/2018 Peaches 02/26/2018 Blueberries 05/13/2018 Medications Active Medications SIG Qnty Indications Ordering Date Provider [facility]400[facility] Solution every 3 weeks MD Prabhakar 9 Mometasone Furoate spray two 17units J30.1 [place] A. 50mcg/Act sprays in each MD Prabhakar 9 Suspension nostril once daily. Flovent HFA 2 puff twice a 12gm [place] A. 110mcg/Act Aerosol day MD Prabhakar 9 Proair Respiclick inhale 2 puffs 1units J45.40 [place] A. 108(90Base) Q4 hours as MD Prabhakar 9 mcg/Act Aerosol needed and 15 minutes prior to exertional activity Levocetirizine take one tablet 30tabs J30.1 [place] A. Dihydrochloride by mouth daily MD Prabhakar 9 5mg Tablets at bedtime Epipen 2-Vern as directed 4units [place] A. 0.3mg/0.3ML MD Prabhakar 8 Solution Auto-Inject Rizatriptan Benzoate take 5-10mg by 30tabs [facility] 5[facility] mouth every 2 MD Prabhakar 8 Tablets hours as needed for migraines. Maximum daily dose of 30 mg in 24 hours Xyzal Allergy 24HR take 1 tablet 30tabs L50.0 [place] A. 5mg Tablets (5 mg) by oral MD Prabhakar 8 route once daily Valacyclovir HCL Unknown 500mg Tablets 0 Potassium Chloride ER Take One Tablet Unknown 10Meq By Mouth Every 0 Tablets ER Day Hydrochlorothiazide Take One Tablet Unknown 25mg By Mouth Every 0 Tablets Morning Zofran take one to two Unknown 4mg Tablets tablets every 6 0 hours as needed. Levothyroxine Sodium 1 by mouth Unknown 75mcg every day 0 Tablets History Medications Avelox take one tablet 14tabs J32.9 Berhane Box 11/04/2018 - 400mg by mouth daily MD Prabhakar 02/12/2019 Tablets for 14 days. Prednisone take 3 tablets 18tabs J32.9 Berhane Box 11/04/2018 - 10mg by mouth twice MD Prabhakar 02/12/2019 Tablets a day x3 days. take with food. Clindamycin HCL 1 tab by mouth 40caps Evangelina Polk NP 10/23/2018 - 4 times a day 02/12/2019 300mg Capsules for 10 days Amoxicillin/Clavula take one tablet 28tabs J01.90 Berhane Box 2018 - javi Potassium by mouth twice MD Prabhakar 02/12/2019 a day x14 days. 875-125mg Tablets Qvar Redihaler inhale 2 puffs 1units J45.40 Berhane Box 09/30/2018 - twice a day. MD Prabhakar 10/02/2018 80mcg/Act Aerosol rinse mouth after use. Medications Administered in Office Medication SIG Qnty Indications Ordering Provider Date Injection Gamunex IV Berhane Radford MD 01/27/2019 Nonlyophilized 500 MG Injection Injection Gamunex IV Infusion 01/27/2019 Nonlyophilized 500 MG Injection IV Infusion For Berhane Radford MD 01/27/2019 Therapy,Prophylaxis Or Diagnosis Additional Hour Injection IV Infusion For Infusion 01/27/2019 Therapy,Prophylaxis Or Diagnosis Additional Hour Injection IV Infusion For Berhane Radford MD 01/27/2019 Therapy,Prophylaxis Or Diagnosis Init Up To 1 HR Injection IV Infusion For Infusion 01/27/2019 Therapy,Prophylaxis Or Diagnosis Init Up To 1 HR Injection Injection Gamunex IV Berhane aRdford MD 01/04/2019 Nonlyophilized 500 MG Injection Injection Gamunex IV Infusion 01/04/2019 Nonlyophilized 500 MG Injection IV Infusion For Berhane Radford MD 01/04/2019 Therapy,Prophylaxis Or Diagnosis Additional Hour Injection IV Infusion For Infusion 01/04/2019 Therapy,Prophylaxis Or Diagnosis Additional Hour Injection IV Infusion For Berhane Radford MD 01/04/2019 Therapy,Prophylaxis Or Diagnosis Init Up To 1 HR Injection IV Infusion For Infusion 01/04/2019 Therapy,Prophylaxis Or Diagnosis Init Up To 1 HR Injection Injection Gamunex IV Berhane Radford MD 12/15/2018 Nonlyophilized 500 MG Injection Injection Gamunex IV Infusion 12/15/2018 Nonlyophilized 500 MG Injection IV Infusion For Berhane Radford MD 12/15/2018 Therapy,Prophylaxis Or Diagnosis Additional Hour Injection IV Infusion For Infusion 12/15/2018 Therapy,Prophylaxis Or Diagnosis Additional Hour Injection IV Infusion For Berhane Radford MD 12/15/2018 Therapy,Prophylaxis Or Diagnosis Init Up To 1 HR Injection IV Infusion For Infusion 12/15/2018 Therapy,Prophylaxis Or Diagnosis Init Up To 1 HR Injection Injection Betamethasone Debra Persaud, 09/30/2018 Sodium Phosphate Per 4 MG RPA-C Injection Therapeutic, Prophylactic Or Debra Persaud, 09/30/2018 Diagnostic Injection Subq/Im RPA-C Injection Injection Gamunex IV Berhane Radford MD 01/28/2018 Nonlyophilized 500 MG Injection Injection Gamunex IV Infusion 01/28/2018 Nonlyophilized 500 MG Injection IV Infusion For Berhane Radford MD 01/28/2018 Therapy,Prophylaxis Or Diagnosis Additional Hour Injection IV Infusion For Infusion 01/28/2018 Therapy,Prophylaxis Or Diagnosis Additional Hour Injection IV Infusion For Berhane Radford MD 01/28/2018 Therapy,Prophylaxis Or Diagnosis Init Up To 1 HR Injection IV Infusion For Infusion 01/28/2018 Therapy,Prophylaxis Or Diagnosis Init Up To 1 HR Injection Injection Gamunex IV Berhane Radford MD 01/07/2018 Nonlyophilized 500 MG Injection Injection Gamunex IV Infusion 01/07/2018 Nonlyophilized 500 MG Injection IV Infusion For Berhane Radford MD 01/07/2018 Therapy,Prophylaxis Or Diagnosis Additional Hour Injection IV Infusion For Infusion 01/07/2018 Therapy,Prophylaxis Or Diagnosis Additional Hour Injection IV Infusion For Berhane Radford MD 01/07/2018 Therapy,Prophylaxis Or Diagnosis Init Up To 1 HR Injection IV Infusion For Infusion 01/07/2018 Therapy,Prophylaxis Or Diagnosis Init Up To 1 HR Injection Injection Gamunex IV Berhane Radford MD 12/15/2017 Nonlyophilized 500 MG Injection Injection Gamunex IV Infusion 12/15/2017 Nonlyophilized 500 MG Injection IV Infusion For Berhane Radford MD 12/15/2017 Therapy,Prophylaxis Or Diagnosis Additional Hour Injection IV Infusion For Infusion 12/15/2017 Therapy,Prophylaxis Or Diagnosis Additional Hour Injection IV Infusion For Berhane Radford MD 12/15/2017 Therapy,Prophylaxis Or Diagnosis Init Up To 1 HR Injection IV Infusion For Infusion 12/15/2017 Therapy,Prophylaxis Or Diagnosis Init Up To 1 HR Injection Injection Gamunex IV Berhane Radford MD 11/12/2017 Nonlyophilized 500 MG Injection Injection Gamunex IV Infusion 11/12/2017 Nonlyophilized 500 MG Injection IV Infusion For Berhane Radford MD 11/12/2017 Therapy,Prophylaxis Or Diagnosis Additional Hour Injection IV Infusion For Infusion 11/12/2017 Therapy,Prophylaxis Or Diagnosis Additional Hour Injection IV Infusion For Berhane Radford MD 11/12/2017 Therapy,Prophylaxis Or Diagnosis Init Up To 1 HR Injection IV Infusion For Infusion 11/12/2017 Therapy,Prophylaxis Or Diagnosis Init Up To 1 HR Injection Injection Gamunex IV Berhane Radford MD 10/10/2017 Nonlyophilized 500 MG Injection Injection Gamunex IV Infusion 10/10/2017 Nonlyophilized 500 MG Injection IV Infusion For Berhane Radford MD 10/10/2017 Therapy,Prophylaxis Or Diagnosis Additional Hour Injection IV Infusion For Infusion 10/10/2017 Therapy,Prophylaxis Or Diagnosis Additional Hour Injection IV Infusion For Berhane Radford MD 10/10/2017 Therapy,Prophylaxis Or Diagnosis Init Up To 1 HR Injection IV Infusion For Infusion 10/10/2017 Therapy,Prophylaxis Or Diagnosis Init Up To 1 HR Injection Immunizations CPT Code Status Date Vaccine Lot # 53034 Given 07/30/2017 Pneumococcal Vaccine 2Yrs Or Older 6701-5820-41 Vital Signs Date Vital Result Comment 02/12/2019 8:46am BP Systolic 122 mmHg BP Diastolic 78 mmHg Height 62 inches 5'2" Weight 173.00 lb BMI (Body Mass Index) 31.6 kg/m2 Heart Rate 82 /min Respiratory Rate 18 /min O2 % BldC Oximetry 99 % 01/27/2019 9:16am BP Systolic 146 mmHg BP Diastolic 71 mmHg Height 62 inches 5'2" Weight 170.12 lb BMI (Body Mass Index) 31.1 kg/m2 Heart Rate 71 /min Respiratory Rate 16 /min Body Temperature 96.7 F O2 % BldC Oximetry 94 % Results Test Date Facility Test Result H/L Range Note Laboratory test [facility] Order <pending> finding 9 Order [facility] <pending> 9 Administration Fee [facility] 3mg-6mg <pending> Procedures Date Code Description Status 01/27/2019 73844 IV Infusion For Therapy,Prophylaxis Or Diagnosis Completed Additional Hour 01/27/2019 81136 IV Infusion For Therapy,Prophylaxis Or Diagnosis Completed Additional Hour 01/27/2019 64324 IV Infusion For Therapy,Prophylaxis Or Diagnosis Init Up Completed To 1 HR 01/27/2019 10623 IV Infusion For Therapy,Prophylaxis Or Diagnosis Init Up Completed To 1 HR 01/04/2019 42308 IV Infusion For Therapy,Prophylaxis Or Diagnosis Completed Additional Hour 01/04/2019 67764 IV Infusion For Therapy,Prophylaxis Or Diagnosis Completed Additional Hour 01/04/2019 56622 IV Infusion For Therapy,Prophylaxis Or Diagnosis Init Up Completed To 1 HR 01/04/2019 26250 IV Infusion For Therapy,Prophylaxis Or Diagnosis Init Up Completed To 1 HR 12/15/2018 73772 IV Infusion For Therapy,Prophylaxis Or Diagnosis Completed Additional Hour 12/15/2018 31165 IV Infusion For Therapy,Prophylaxis Or Diagnosis Completed Additional Hour 12/15/2018 29780 IV Infusion For Therapy,Prophylaxis Or Diagnosis Init Up Completed To 1 HR 12/15/2018 70953 IV Infusion For Therapy,Prophylaxis Or Diagnosis Init Up Completed To 1 HR 09/30/2018 16571 Therapeutic, Prophylactic Or Diagnostic Injection Subq/Im Completed 09/30/2018 00709 Nitric Oxide Gas Determination Completed 09/30/2018 59920 Bronchodilation Responsiveness Spirometry Pre/Post Completed Bronchodil Adm Medical Devices Description No Information Available Encounters Type Date Location Provider Dx Diagnosis Office Visit 11/11/2018 Susanne Ross.9 Chronic sinusitis, 4:30p unspecified D83.8 Other common variable immunodeficiencies Office Visit 11/04/2018 11:30a Matias Skinner.9 Chronic sinusitis, Fenstermacher, RPA-C unspecified D83.8 Other common variable immunodeficiencies Office Visit 10/19/2018 10:00a [facility] Debra S. J45.40 Moderate persistent Fenstermacher, RPA-C asthma, uncomplicated J45.990 Exercise induced bronchospasm J30.1 Allergic rhinitis due to pollen Z91.018 Allergy to other foods D83.8 Other common variable immunodeficiencies J01.90 Acute sinusitis, unspecified Office Visit 09/30/2018 11:30a [facility] Debra S. J45.40 Moderate persistent Fenstermacher, RPA-C asthma, uncomplicated J30.1 Allergic rhinitis due to pollen Z91.018 Allergy to other foods D83.8 Other common variable immunodeficiencies L50.1 Idiopathic urticaria Assessments Date Code Description Provider 01/27/2019 D83.8 Other common variable Berhane Radford MD immunodeficiencies 01/27/2019 D83.8 Other common variable Infusion immunodeficiencies 01/04/2019 D83.8 Other common variable Berhane Radford MD immunodeficiencies 01/04/2019 D83.8 Other common variable Infusion immunodeficiencies 12/15/2018 D83.8 Other common variable Berhane Radford MD immunodeficiencies 12/15/2018 D83.8 Other common variable Infusion immunodeficiencies 11/11/2018 J32.9 Chronic sinusitis, unspecified Berhane Radford MD 11/11/2018 D83.8 Other common variable Berhane Radford MD immunodeficiencies 11/04/2018 J32.9 Chronic sinusitis, unspecified Debra S. Fenstermacher, RPA- C 11/04/2018 D83.8 Other common variable Debra S. Fenstermacher, RPA-C immunodeficiencies 10/19/2018 J45.40 Moderate persistent asthma, Debra S. Fenstermacher, RPA-C uncomplicated 10/19/2018 J45.990 Exercise induced bronchospasm Debra S. Fenstermacher, RPA -C 10/19/2018 J30.1 Allergic rhinitis due to pollen Debra S. Fenstermacher, RPA -C 10/19/2018 Z91.018 Allergy to other foods Debra S. Fenstermacher, RPA-C 10/19/2018 D83.8 Other common variable Debra S. Fenstermacher, RPA-C immunodeficiencies 10/19/2018 J01.90 Acute sinusitis, unspecified Debra Corbettermalcides, RPA-C 09/30/2018 J45.40 Moderate persistent asthma, Debra Persaud, RPA-C uncomplicated 09/30/2018 J30.1 Allergic rhinitis due to pollen Debra Persaud RPA -C 09/30/2018 Z91.018 Allergy to other foods Debra Persaud RPA-C 09/30/2018 D83.8 Other common variable Debra Persaud RPA-C immunodeficiencies 09/30/2018 L50.1 Idiopathic urticaria CONNIE HaileC Plan of Treatment Future Appointment(s):03/29/2019 10:00 am - Infusion at [facility]/08/2019 10:00 am - Infusion at [facility]/15/2019 10:00 am - Infusion at [facility] Functional Status Description No Information Available Mental Status Description No Information Available Referrals Description No Information Available
--- OUTSIDE RECORDS SUMMARY | 2019-03-08 15:18 | XMS REPORT | Continuity of Care Document ---
:1980 External Reference #:[id number] Author Name Berhane Radford MD Address [address] [place] [address] Care Team Providers Name Role Phone Fatuma Bob, Care Team Information District Fire Chief Unavailable Judi Lopez MD - Family Care Team Information District Fire Chief Medicine Problems Active Problems Provider Date Allergic urticaria Berhane Radford MD Onset: 07/09/2017 Allergy to other foods Berhane Radford MD Onset: 07/09/2017 Chronic sinusitis ISMAEL Haile Onset: 07/30/2017 Allergic rhinitis ISMAEL Haile Onset: 07/30/2017 Personal history of anaphylaxis Debra Persaud RPAZainC Onset: 2017 Common variable agammaglobulinemia Berhane Radford MD Onset: 09/19/2017 Allergic rhinitis due to pollen Berhane Radford MD Onset: 02/06/2018 Uncomplicated moderate persistent Debra Persaud RPA-C Onset: 2018 asthma Idiopathic urticaria Debra Persaud RPA-C Onset: 09/30/2018 Exercise-induced asthma ISMAEL Haile Onset: 10/19/2018 Acute sinusitis Debra Persaud RPA-C Onset: 10/19/2018 Social History Type Date Description Comments Sex Unknown Tobacco Use Start: Unknown Never Smoked Cigarettes Tobacco Use Start: Unknown Patient has never smoked Tobacco Use Start: Unknown No Second Hand Smoke Exposure Smoking Status Reviewed: 02/12/19 No Second Hand Smoke Exposure Allergies, Adverse Reactions, Alerts Active Allergies Reaction Severity Comments Date Cefuroxime 07/09/2017 Doxycycline 09/19/2017 Apples 02/26/2018 Oranges 02/26/2018 Peaches 02/26/2018 Blueberries 05/13/2018 Medications Active Medications SIG Qnty Indications Ordering Date Provider Gamunex-C 40 grams IV [place] A. 40GM/400ML Solution every 3 weeks MD Prabhakar 9 Mometasone Furoate spray two 17units J30.1 [place] A. 50mcg/Act sprays in each MD Prabhakar 9 Suspension nostril once daily. Flovent HFA 2 puff twice a 12gm [place] A. 110mcg/Act Aerosol day MD Prabhakar 9 Proair Respiclick inhale 2 puffs 1units J45.40 [place] A. 108(90Base) Q4 hours as MD Prabhakar 9 mcg/Act Aerosol needed and 15 minutes prior to exertional activity Levocetirizine take one tablet 30tabs J30.1 [place] A. Dihydrochloride by mouth daily MD Prabhakar 9 5mg Tablets at bedtime Epipen 2-Vern as directed 4units [place] A. 0.3mg/0.3ML MD Prabhakar 8 Solution Auto-Inject Rizatriptan Benzoate take 5-10mg by 30tabs [place] ABay 5mg mouth every 2 MD Prabhakar 8 Tablets hours as needed for migraines. Maximum daily dose of 30 mg in 24 hours Xyzal Allergy 24HR take 1 tablet 30tabs L50.0 [place] A. 5mg Tablets (5 mg) by oral [...] needed. Levothyroxine Sodium 1 by mouth Unknown 00/00/000 75mcg every day 0 Tablets History Medications Avelox take one tablet 14tabs J32.9 Berhane Larios. 11/04/2018 - 400mg by mouth daily MD Prabhakar 02/12/2019 Tablets for 14 days. Prednisone take 3 tablets 18tabs J32.9 Efrener A. 11/04/2018 - 10mg by mouth twice MD Prabhakar 02/12/2019 Tablets a day x3 days. take with food. Clindamycin HCL 1 tab by mouth 40caps Evangelina Polk NP 10/23/2018 - 4 times a day 02/12/2019 300mg Capsules for 10 days Amoxicillin/Clavula take one tablet 28tabs J01.90 Berhane Larios. 2018 - javi Potassium by mouth twice MD Prabhakar 02/12/2019 a day x14 days. 875-125mg Tablets Qvar Redihaler inhale 2 puffs 1units J45.40 Berhane Larios. 09/30/2018 - twice a day. MD Prabhakar [...] Injection Injection Gamunex IV Berhane Radford MD 01/04/2019 Nonlyophilized 500 MG Injection Injection [...] CPT Code Status Date Vaccine Lot # [id number] Given 07/30/2017 Pneumococcal Vaccine 2Yrs Or Older 1805-1925-08 Vital Signs Date Vital Result Comment 02/12/2019 [...] <pending> Procedures Date Code Description Status 01/27/2019 81345 IV Infusion For Therapy,Prophylaxis Or Diagnosis Completed Additional Hour 01/27/2019 91442 IV Infusion For Therapy,Prophylaxis Or Diagnosis Completed Additional Hour 01/27/2019 46555 IV Infusion For Therapy,Prophylaxis Or Diagnosis Init Up Completed To 1 HR 01/27/2019 48761 IV Infusion For Therapy,Prophylaxis Or Diagnosis Init Up Completed To 1 HR 01/04/2019 53937 IV Infusion For Therapy,Prophylaxis Or Diagnosis Completed Additional Hour 01/04/2019 19359 IV Infusion For Therapy,Prophylaxis Or Diagnosis Completed Additional Hour 01/04/2019 30308 IV Infusion For Therapy,Prophylaxis Or Diagnosis Init Up Completed To 1 HR 01/04/2019 66139 IV Infusion For Therapy,Prophylaxis Or Diagnosis Init Up Completed To 1 HR 12/15/2018 67709 IV Infusion For Therapy,Prophylaxis Or Diagnosis Completed Additional Hour 12/15/2018 98675 IV Infusion For Therapy,Prophylaxis Or Diagnosis Completed Additional Hour 12/15/2018 69919 IV Infusion For Therapy,Prophylaxis Or Diagnosis Init Up Completed To 1 HR 12/15/2018 84357 IV Infusion For Therapy,Prophylaxis Or Diagnosis Init Up Completed To 1 HR 09/30/2018 44507 Therapeutic, Prophylactic Or Diagnostic Injection Subq/Im Completed 09/30/2018 44377 Nitric Oxide Gas Determination Completed 09/30/2018 11628 Bronchodilation Responsiveness Spirometry Pre/Post Completed Bronchodil Adm Medical Devices Description No Information Available Encounters Type Date Location Provider Dx Diagnosis Office Visit 11/11/2018 Katheryn Ross32.9 Chronic sinusitis, 4:30p unspecified 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 J45.40 Moderate persistent Fenstermacher, RPA-C [...] immunodeficiencies 10/19/2018 J01.90 Acute sinusitis, unspecified Debra Durbinstermacher, RPA-C 09/30/2018 J45.40 Moderate persistent asthma, Debra Duarter, RPA-C uncomplicated 09/30/2018 J30.1 Allergic rhinitis due to pollen Debra Persaud, RPA -C 09/30/2018 Z91.018 Allergy to other foods Debra Persaud, RPA-C 09/30/2018 D83.8 Other common variable Debra Persaud, RPA-C immunodeficiencies 09/30/2018 L50.1 Idiopathic urticaria Debra Persaud RPA-C Plan of Treatment Future Appointment(s):05/14/2019 10:30 am - Evangelina Polk NP at [id number] 10:00 am - Infusion at [id number]/08/2019 10:00 am - Infusion at [id number] 10:00 am - Infusion at [place] Functional Status Description No Information Available Mental Status Description No Information Available Referrals Description No Information Available
[2019-03-08] MEDS ORDERED: Famotidine IV* 10 MG/ML 2 ML (20 mg) ONE ×3 (15:28→15:45)
--- NOTE | 2019-03-08 15:32 | ED ---
Allergic Reaction/Systemic - HPI Summary HPI Summary: This patient is a 38 year old female accompanied presenting to [facility] with a chief complaint of allergic reaction. She states she started a new antibiotic, Flagyl, PO today 2 hours ago and started feeling throat tightness and pruritis. 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 She states her pruritis was on her face and tongue. She also reports chest tightness. Pt denies any fever, chills, erythema of eyes, SOB, cough, abdominal pain, N/V, dysuria, hematuria, myalgia, edema, or dizziness. - History of Current Complaint Chief Complaint: EDAllergicReaction Time Seen by Provider: 03/08/19 15:24 Hx Obtained From: Patient Hx Last Menstrual Period: 2016 Onset/Duration: Started hours ago Pain Intensity: 0 Pain Scale Used: 0-10 Numeric Character: Pruritus - Allergies/Home Medications Allergies/Adverse Reactions: Allergies Allergy/AdvReac Type Severity Reaction Status Date / Time doxycycline Allergy Severe Difficulty Verified 03/08/19 18:52 Breathing cefuroxime Allergy Anaphylatic Verified 03/08/19 18:52 Shock metronidazole [From Flagyl] Allergy Anaphylatic Verified 03/08/19 18:52 Shock raspberry Allergy Anaphylatic Verified 03/08/19 18:52 Shock Home Medications: Home Medications Fluticasone HFA 110 mcg(NF) [Flovent HFA 110 mcg(NF)] 2 puff INH BID 03/08/19 [ History Confirmed 03/08/19] Mometasone NASAL (NF) [Nasonex (NF)] 2 spray BOTH NARES DAILY 03/08/19 [History Confirmed 03/08/19] Valacyclovir HCl [Valacyclovir] 500 mg PO DAILY 03/08/19 [History Confirmed 03/18] PMH/Surg Hx/FS Hx/Imm Hx Endocrine/Hematology History: Reports: Hx Thyroid Disease - HYPOTHYROID Denies: Hx Blood Disorders, Hx Bone Marrow Disease, Hx Sickle Cell Disease, Hx Anemia Cardiovascular History: Denies: Hx Valvular Heart Disease Respiratory History: Reports: Hx Asthma - EXERCISE INDUCED, HAS INHALER, NEVER USES IT, Other Respiratory Problems/Disorders - CHRONIC RHINITIS, SINUSITIS FOR PAST 2 YRS GI History: Reports: Hx Gastroesophageal Reflux Disease, Other GI Disorders - HERNIA REPAIR AT 1 YRS OF AGE Denies: Hx Hiatal Hernia Musculoskeletal History: Denies: Hx Osteoporosis Sensory History: Reports: Hx Contacts or Glasses - BOTH, WILL WEAR GLASSES DOS Denies: Hx Cataracts, Hx Glaucoma, Hx Hearing Aid Opthamlomology History: Reports: Hx Contacts or Glasses - BOTH, WILL WEAR GLASSES DOS Denies: Hx Cataracts, Hx Glaucoma Neurological History: Reports: Hx Migraine Denies: Hx Seizures, Other Neuro Impairments/Disorders Psychiatric History: Reports: Hx Anxiety - ABLE TO CONTROL, NOT TAKING RX AT THIS TIME, Hx Depression - CURRENTLY MANAGEABLE Denies: Hx Eating Disorder - Surgical History Surgery Procedure, Year, and Place: HERNIA REPAIR [address] [facility]. TONSILLECTOMY [address] [facility] Anesthesia Reactions: No - Immunization History Date of Tetanus Vaccine: UTD Date of Influenza Vaccine: 02/2017 Infectious Disease History: No Infectious Disease History: Denies: Traveled Outside the [place] in Last 30 Days - Family History Known Family History: Positive: Cardiac Disease - father, Hypertension, Diabetes , Other - prostate cancer, skin CA, hypothyroidism - Social History Alcohol Use: None Alcohol Amount: 1-2 drinks/week Hx Substance Use: No Substance Use Type: Reports: None Hx Tobacco Use: No Smoking Status (MU): Never Smoked Tobacco Have You Smoked in the Last Year: No Review of Systems Negative: Fever, Chills Negative: Erythema Positive: Sore Throat - Tightness Positive: Chest Pain - Tightness Negative: Shortness Of Breath, Cough Negative: Abdominal Pain, Vomiting, Nausea Negative: dysuria, hematuria Negative: Myalgia, Edema Positive: Rash - Pruritis Neurological: Other - Neg: Dizziness All Other Systems Reviewed And Are Negative: Yes Physical Exam - Summary Physical Exam Summary: Constitutional: Well-developed, Well-nourished, Alert. (-) Distressed Skin: Warm, Dry HENT: Normocephalic; Atraumatic Eyes: Conjunctiva normal Neck: Musculoskeletal ROM normal neck. (-) JVD, (-) Stridor, (-) Tracheal deviation Cardio: Rhythm regular, rate normal, Heart sounds normal; Intact distal pulses; The pedal pulses are 2+ and symmetric. Radial pulses are 2+ and symmetric. (-) Murmur Pulmonary/Chest wall: Effort normal. (-) Respiratory distress, (-) Wheezes, (-) Rales Abd: Soft, (-) tenderness, (-) Distension, (-) Guarding, (-) Rebound Musculoskeletal: (-) Edema Lymph: (-) Cervical adenopathy Neuro: Alert, Oriented x3 Psych: Mood and affect Normal Triage Information Reviewed: Yes Vital Signs On Initial Exam: Initial Vitals Temp Pulse Resp BP Pulse Ox 97.8 F 97 18 134/80 95 03/08/19 15:21 03/08/19 15:21 03/08/19 15:21 03/08/19 15:21 03/08/19 15:21 Vital Signs Reviewed: Yes Diagnostics - Vital Signs Vital Signs Temp Pulse Resp BP Pulse Ox 03/08/19 15:21 97.8 F 97 18 134/80 95 - Laboratory Lab Statement: Any lab studies that have been ordered have been reviewed, and results considered in the medical decision making process. Re-Evaluation - Re-Evaluation First Eval Re-Evaluation Time: 18:35 Change: Improved Comment: All symptoms resolved. Allergic Reaction Course/Dx - Course Course Of Treatment: This patient is a 38 year old female accompanied presenting to [facility] with a chief complaint of allergic reaction. Patient was instructed to discontinue Flagyl. Symptoms may have been anxiety driven as the physical exam was unremarkable. A plan for discharge was discussed with the patient and she was agreeable with this plan. - Diagnoses Provider Diagnoses: Allergic reaction Discharge ED - Sign-Out/Discharge Documenting (check all that apply): Patient Departure - Discharge Patient Received Moderate/Deep Sedation with Procedure: No - Discharge Plan Condition: Stable Disposition: HOME Prescriptions: diPHENhydraMINE PO* [Benadryl PO 50 MG CAP*] 50 mg PO Q6H PRN #12 cap PRN Reason: Itching EPINEPHrine [Epipen] 0.3 mg INJ ONCE PRN #2 auto.injct PRN Reason: Allergy Symptoms methylPREDNISolone [Medrol Dosepak 4 MG*] 1 mg PO .SEE YOKO INSTRUCTION #1 packet Patient Education Materials: General Allergic Reaction (ED) Referrals: Giuliana Sidhu NP [Primary Care Provider] - Additional Instructions: Discontinue Flagyl. Return to ED with any new or worsening symptoms. Follow up with your primary care provider in 2-3 days. - Billing Disposition and Condition Condition: STABLE Disposition: Home - Attestation Statements Document Initiated by Scribe: Yes Documenting Scribe: Dylan Pennington Provider For Whom Scribe is Documenting (Include Credential): Stevan Martin MD Scribe Attestation: I, Dylan Pennington, scribed for Stevan Martin MD on 03/19/19 at 1149. Scribe Documentation Reviewed: Yes Provider Attestation: The documentation as recorded by the scribe, Dylan Pennington accurately reflects the service I personally performed and the decisions made by me, Stevan Martin MD Status of Scribe Document: Viewed
[2019-03-08] MEDS ORDERED: methylPREDNISolone 125 MG* 2 ML VIAL ONE (15:45)
[2019-03-08] MEDS ORDERED: diPHENhydraMINE IV* 50 MG/ML 1 ml VIAL (BENADRYL) ONE (15:45)
[2019-03-08 18:49] VITALS: BP 139/85
== END 2019-03-08 18:47 | disposition home or self-care (01) ==
LOC: ED 15:09
DX: T78.40XA Allergy, unspecified, initial encounter (principal); X58.XXXA Exposure to other specified factors, initial encounter; E03.9 Hypothyroidism, unspecified; J45.990 Exercise induced bronchospasm; K21.9 Gastro-esophageal reflux disease without esophagitis; Z79.899 Other long term (current) drug therapy
CPT/HCPCS: 99283; J1200; J2930

== ENCOUNTER 2019-07-22 10:13 | Emergency (ER) | payer OTHER ==
[2019-07-22 10:32] LABS: ABS Basophils 0.1 10^3/ul (0-0.2); ABS Eosinophils 0.1 10^3/ul (0-0.6); ABS Lymphocytes 1.2 10^3/ul (1.0-4.8); ABS Monocytes 0.5 10^3/ul (0-0.8); ABS Neutrophils 3.2 10^3/ul (1.5-7.7); Eosinophil % 1.2 %; Hematocrit 41 % (35-47); Hemoglobin 14.3 g/dL (12.0-16.0); Lymphocyte % 23.4 %; Mean Corpuscular HGB Conc 35 g/dL (31-36); Mean Corpuscular Hemoglobin 33 pg (27-31); Mean Corpuscular Volume 93 fL (80-97); Platelet Count 289 10^3/uL (150-450); Red Blood Count 4.35 10^6 /uL (3.70-4.87); Red Cell Distribution Width 13 % (10-15)
[2019-07-22 10:37] LABS: INR 1.08 (0.82-1.09)
--- NOTE | 2019-07-22 10:38 | ED ---
HPI Chest Pain - HPI Summary HPI Summary: The patient is a 38 y/o female presenting to [facility] with a chief complaint of substernal chest pressure onset approximately an hour ago. She reports that she has a history of CVID and receives 40g IGG infusions approximately every three weeks. She was scheduled to have an infusion on 07/12/2019, but the provider pushed back the treatment until 07/16/2019. That day, she felt okay, but the following day she developed a headache which is typical with the infusions. However, alter that night, she began to have indigestion that lasted into the next day with decreased appetite and a burning sensation in the throat. She used baking soda water to relieve the symptoms, but she then began feeling fast palpitations and an elevated BP (measured at home) of 155/113 mmHg while her usual is around 113/70 mmHg. She felt better for the next two days, as she attributed her symptoms to a sinus infection, which she often has due to the CVID when she doesnt receive treatments in time. However, yesterday she felt unwell again and went to her PCP, Dr. Judi Lopez, who checked a urinalysis to reveal some protein without noted UTI, which the patient also has occasionally secondary to CVID. She also had an EKG taken since she was experiencing palpitations, which only revealed tachycardia but with a normal rhythm. Blood work was also ordered, which resulted in hypomagnesemia, so her PCP recommended she come to the ED today. She was placed on Amoxicillin, which she last had been on in April 2019 for a sinus-related issue. She notes that she had sinus surgery for severe ear-pressure, and she had also been placed on Hydrochlorothiazide for the last year and a half, which has significantly helped her symptoms. Currently, she is complaining of a frontal and occipital headache, fast palpitations, chest pressure, neck stiffness, and post-nasal drip. She denies any edema in the lower extremities. Overall aching pain is rated 8/10 in severity. PMHx: hypothyroidism, HTN, GERD, migraines, exercise- induced asthma, anxiety, depression. Nonsmoker, no EtOH, no substance use. Medications reviewed. Allergies noted. - History of Current Complaint Chief Complaint: EDChestPainROMI Time Seen by Provider: 07/22/19 10:21 Hx Obtained From: Patient Hx Last Menstrual Period: 2016 Onset/Duration: Still Present Timing: Lasting Days Initial Severity: Mild Current Severity: Moderate Pain Intensity: 8 Pain Scale Used: 0-10 Numeric Chest Pain Location: Mid Sternal Chest Pain Radiates: No Character: Dull/Aching, Pressure/Squeezing Aggravating Factor(s): Other: - CVID treatment being delayed Alleviating Factor(s): Nothing Associated Signs and Symptoms: Positive: Chest Pain, Headaches, Palpitations - fast, Other: - neck stiffness, post-nasal drip, burning sensation in throat. Negative: Edema - Additional Pertinent History Primary Care Physician: [id number] - Allergy/Home Medications Allergies/Adverse Reactions: Allergies Allergy/AdvReac Type Severity Reaction Status Date / Time doxycycline Allergy Severe Difficulty Verified 07/22/19 10:29 Breathing cefuroxime Allergy Anaphylatic Verified 07/22/19 10:29 Shock metronidazole [From Flagyl] Allergy Anaphylatic Verified 07/22/19 10:29 Shock raspberry Allergy Anaphylatic Verified 07/22/19 10:29 Shock PMH/Surg Hx/FS Hx/Imm Hx Endocrine/Hematology History: Reports: Hx Thyroid Disease - HYPOTHYROID, Other Endocrine/Hematological Disorders - CVID Denies: Hx Blood Disorders, Hx Bone Marrow Disease, Hx Diabetes, Hx Sickle Cell Disease, Hx Anemia Cardiovascular History: Reports: Hx Hypertension Denies: Hx Pacemaker/ICD, Hx Valvular Heart Disease Respiratory History: Reports: Hx Asthma - EXERCISE INDUCED, HAS INHALER, NEVER USES IT, Other Respiratory Problems/Disorders - CHRONIC RHINITIS, SINUSITIS FOR PAST 2 YRS GI History: Reports: Hx Gastroesophageal Reflux Disease, Other GI Disorders - HERNIA REPAIR AT 1 YRS OF AGE Denies: Hx Hiatal Hernia History: Denies: Hx Renal Disease Musculoskeletal History: Denies: Hx Osteoporosis Sensory History: Reports: Hx Contacts or Glasses - BOTH, WILL WEAR GLASSES DOS Denies: Hx Cataracts, Hx Glaucoma, Hx Hearing Aid Opthamlomology History: Reports: Hx Contacts or Glasses - BOTH, WILL WEAR GLASSES DOS Denies: Hx Cataracts, Hx Glaucoma Neurological History: Reports: Hx Migraine Denies: Hx Seizures, Other Neuro Impairments/Disorders Psychiatric History: Reports: Hx Anxiety - ABLE TO CONTROL, NOT TAKING RX AT THIS TIME, Hx Depression - CURRENTLY MANAGEABLE Denies: Hx Eating Disorder, Hx Panic Disorder - Surgical History Surgical History: Yes Surgery Procedure, Year, and Place: HERNIA REPAIR [facility]. TONSILLECTOMY [address] [facility] Hx Anesthesia Reactions: No - Immunization History Date of Tetanus Vaccine: UTD Date of Influenza Vaccine: 02/2017 Immunizations Up to Date: Yes Infectious Disease History: No Infectious Disease History: Denies: Traveled Outside the [place] in Last 30 Days - Family History Known Family History: Positive: Cardiac Disease - father, Hypertension, Diabetes , Other - prostate cancer, skin CA, hypothyroidism - Social History Alcohol Use: None Hx Substance Use: No Substance Use Type: Reports: None Hx Tobacco Use: No Smoking Status (MU): Never Smoked Tobacco Have You Smoked in the Last Year: No Review of Systems Positive: Other - burning sensation throat, post-nasal drip Positive: Palpitations - fast, Chest Pain - pressure Positive: Arthralgia - neck, stiff. Negative: Edema Positive: Headache - frontal and occipital All Other Systems Reviewed And Are Negative: Yes Physical Exam - Summary Physical Exam Summary: Appearance: The patient is well-nourished in no acute distress and in no acute pain. Skin: The skin is warm and dry, and skin color reflects adequate perfusion. HEENT: The head is normocephalic and atraumatic. The pupils are equal and reactive. The conjunctivae are clear and without drainage. Nares are patent and without drainage. Mouth reveals moist mucous membranes, and the throat is without erythema and exudate. The external ears are intact. The ear canals are patent and without drainage. The tympanic membranes are intact. Neck: The neck is supple with full range of motion and non-tender. There are no carotid bruits. There is no neck vein distension. Respiratory: Chest is non-tender. There are a few crackles in the right lung. Cardiovascular: She is borderline tachycardic. There is no murmur or rub auscultated. There is no peripheral edema and pulses are symmetrical and equal. Abdomen: The abdomen is soft and non-tender. There are normal bowel sounds heard in all four quadrants and there is no organomegaly palpated. Musculoskeletal: There is no back tenderness noted. Extremities are non-tender with full range of motion. There is good capillary refill. There is no peripheral edema or calf tenderness elicited. Neurological: Patient is alert and oriented to person, place and time. The patient has symmetrical motor strength in all four extremities. Cranial nerves are grossly intact. Deep tendon reflexes are symmetrical and equal in all four extremities. Psychiatric: The patient has an appropriate affect and does not exhibit any anxiety or depression. Triage Information Reviewed: Yes Vital Signs On Initial Exam: Initial Vitals Temp Pulse Resp BP Pulse Ox 97.8 F 91 18 153/82 97 07/22/19 10:19 07/22/19 10:19 07/22/19 10:19 07/22/19 10:19 07/22/19 10:19 Vital Signs Reviewed: Yes Procedures - Sedation Patient Received Moderate/Deep Sedation with Procedure: No Diagnostics - Vital Signs Vital Signs Temp Pulse Resp BP Pulse Ox 07/22/19 10:19 97.8 F 91 18 153/82 97 - Laboratory Result Diagrams: 07/22/19 10:23 07/22/19 10:23 Lab Statement: Any lab studies that have been ordered have been reviewed, and results considered in the medical decision making process. - Radiology CXR Radiology Interpretation Completed By: Radiologist Summary of Radiographic Findings: Impression: No evidence for active cardiopulmonary disease. ED physician has reviewed this report. - EKG 1013 Cardiac Rate: NL - 88 BPM EKG Rhythm: Sinus Rhythm Summary of EKG Findings: An EKG at 1013 reveals normal sinus rhythm at 88 BPM, normal ST, no ectopy, no STEMI. ED physician has reviewed and interpreted this EKG. Re-Evaluation - Re-Evaluation First Eval Re-Evaluation Time: 14:15 Comment: We discussed results and plan for discharge. Chest Pain Course/Dx - Course Course Of Treatment: She was borderline tachycardic when she arrived here. She got fluids and monitoring while labs are being obtained and her tachycardia resolved. She likely has a sinus infection. Her urine was initially read out as positive and because it was negative when she was started on amoxicillin I switched her to Augmentin. The lab called later and reported an error. That was not her urine result. At any rate she was improved and was not septic. I recommended she follow up with her PCP. - Diagnoses Provider Diagnoses: Sinus infection, UTI (urinary tract infection) Discharge ED - Sign-Out/Discharge Documenting (check all that apply): Patient Departure - Patient will be discharged home. - Discharge Plan Condition: Stable Disposition: HOME Prescriptions: Amoxicillin/Clavulanate TAB* [Augmentin TAB 875*] 875 mg PO BID #20 tab Patient Education Materials: Urinary Tract Infection in Women (ED), Sinusitis ( ED) Referrals: Madi Radford MD [Medical Doctor] - 3 Days Giuliana Sidhu NP [Primary Care Provider] - 3 Days Additional Instructions: Please take medications as prescribed. Follow up with Dr. Radford in 2-3 days concerning today's visit. Follow up with your primary care provider as well. Return to the emergency department for any new or worsening symptoms. - Billing Disposition and Condition Condition: STABLE Disposition: Home - Attestation Statements Document Initiated by Juarez: Yes Documenting Scribe: Giselle Nolan Provider For Whom Juarez is Documenting (Include Credential): Dr. Chuy Barun MD Scribe Attestation: I, tanvi Gordonibed for Dr. Chuy Braun MD on 07/22/19 at 1733. Scribe Documentation Reviewed: Yes Provider Attestation: The documentation as recorded by the Giselle phillip accurately reflects the service I personally performed and the decisions made by me, Dr. Chuy Braun MD Status of Scribe Document: Viewed
[2019-07-22 10:51] LABS: Albumin 4.4 g/dL (3.2-5.2); Albumin/Globulin Ratio 1.2 (1-3); BUN/Creatinine Ratio 8.3 (8-20); Calcium 9.5 mg/dL (8.6-10.3); EGFR African American 68.3 (>60); EGFR Non-African American 56.5 (>60); Globulin 3.7 g/dL (2-4); Potassium 3.1 mmol/L (3.5-5.0); Total Bilirubin 0.7 mg/dL (0.2-1.0); Total Protein 8.1 g/dL (6.4-8.9)
[2019-07-22] MEDS ORDERED: NS 0.9% 1000 ML** 1,000 ML IV ONE (10:55)
[2019-07-22 11:14] LABS: Magnesium 1.9 mg/dL (1.9-2.7)
[2019-07-22 14:36] VITALS: BP 130/84
== END 2019-07-22 14:34 | disposition home or self-care (01) ==
LOC: ED 10:13
DX: J32.9 Chronic sinusitis, unspecified (principal); N39.0 Urinary tract infection, site not specified; D83.9 Common variable immunodeficiency, unspecified; E03.9 Hypothyroidism, unspecified; I10 Essential (primary) hypertension; K21.9 Gastro-esophageal reflux disease without esophagitis; F41.9 Anxiety disorder, unspecified; F32.9 Major depressive disorder, single episode, unspecified; Z88.1 Allergy status to other antibiotic agents
CPT/HCPCS: 36415; 71046; 80053; 81003; 81015; 83605; 83735; 84484; 85025; 85610; 87040; 93005; 96360; 99283